=== PATIENT | female | born 1925 | race Caucasian/White ===

== ENCOUNTER 2016-11-11 18:07 | Inpatient (IN) | payer MEDICARE, MEDICAID ==
[2016-11-11 18:55] LABS: % BASOPHILS 0.8 % (0.0-2.0); % EOSINOPHILS 4.1 % (0.0-5.0); % LYMPHOCYTES 26.5 % (20.0-50.0); % MONOCYTES 11.5 % (2.0-10.0); % NEUTROPHILS 57.1 % (40.0-80.0); HEMATOCRIT 39.7 % (35.0-45.0); HEMOGLOBIN 13.2 gm/dL (11.7-16.1); MEAN CELL VOLUME 83.6 fl (81-100); MEAN CORPUSCULAR HEMOGLOBIN 27.9 pg (27.0-31.0); MEAN CORPUSCULAR HGB CONC 33.4 pg (28.0-36.0); MEAN PLATELET VOLUME 9.2 fl; NEUTROPHILE ABSOLUTE 4.5 Th/cmm (1.8-8.0); PLATELET COUNT 191 Th/cmm (150-400); RED BLOOD COUNT 4.75 Mil/cmm (3.80-5.20); RED CELL DISTRIBUTION WIDTH 14.7 % (11.5-20.0); WHITE BLOOD COUNT 7.9 Th/cmm (4.8-10.8)
[2016-11-11 19:21] LABS: ALB/GLOB RATIO 1.1 (1.0-1.8); ALKALINE PHOSPHATASE 75 U/L (34-104); ANION GAP 8.3 (7.0-16.0); BILIRUBIN,TOTAL 0.4 mg/dL (0.3-1.0); BUN - UREA NITROGEN 22 mg/dL (7-25); BUN/CREATININE RATIO 24.4; CALCIUM SERUM 9.4 mg/dL (8.6-10.3); CARBON DIOXIDE 27.2 mEq/L (21.0-31.0); CHLORIDE 105 mEq/L (98-107); CREATININE - SERUM 0.9 mg/dL (0.6-1.2); GLUCOSE 111 mg/dL (70-105); LIPASE 23 U/L (11-82); POTASSIUM SERUM 3.5 mEq/L (3.5-5.1); SGOT 17 U/L (13-39); SGPT/ALT 9 U/L (7-52); SODIUM SERUM 137 mEq/L (136-145)
--- NOTE | 2016-11-11 20:54 | ED Physician Chart ---
Chief Complaint/HPI - Patient Information Date Seen:: 11/11/16 Time Seen:: 18:30 Chief Complaint:: Agitation History of Present Illness:: onset x 2 days of agitation, aggressive behavior, and combative behavior; no SIs , hallucinations, or delusions; no other s/s reported Allergies:: Allergies Allergy/AdvReac Type Severity Reaction Status Date / Time No Known Allergies Allergy Verified 11/11/16 18:28 Vitals:: Vital Signs - 8 hr 11/11/16 18:28 Temp 98.5 F HR 77 RR 16 BP 144/70 O2 Sat % 94 Historian:: Patient, EMS Review:: Nurse's Note Reviewed, Old Chart Reviewed, EMS run form Reviewed, Transfer documents Reviewed Review of Systems - Review of Systems General/Constitutional: Fever, Chills, No weight loss, Weakness, No diaphoresis , No edema, No loss of appetite Skin: No skin lesions, No rash, No bruising Head: Headache, No light-headedness Eyes: No loss of vision, No pain, No diplopia ENT: No earache, No nasal drainage, No sore throat, No tinnitus Neck: No neck pain, No swelling, No thyromegaly, No stiffness, No mass noted Cardio Vascular: No chest pain, No palpitations, No PND, No orthopnea, No edema Pulmonary: No SOB, Cough, No sputum, No wheezing GI: No nausea, No vomiting, No diarrhea, No pain, No melena, No hematochezia, No constipation, No hematemesis G/U: No dysuria, No frequency, No hematuria Kettle Girl: No vaginal discharge, No abnormal vaginal bleed, No contraction Musculoskeletal: No bone or joint pain, No back pain, Muscle pain Endocrine: No polyuria, No polydipsia Psychiatric: Prior psych history, Depression, Anxiety, No suicidal ideation, No homicidal ideation, Auditory hallucination, Visual hallucination Hematopoietic: No bruising, No lymphadenopathy Allergic/Immuno: No urticaria, No angioedema Neurological: No syncope, No focal symptoms, Weakness, No paresthesia, Headache , No seizure, No dizziness, Confusion, No vertigo Past Medical History - Past Medical History Past Medical History: HTN, Dyslipidemia, Dementia, Other (Myositis) Family History: Heart disease, Diabetes Melitus, HTN Social History: Non Smoker, No Alcohol, No Drug Use, Single, Care Facility Surgical History: None Psychiatricy History: Depression, Schizophrenia, Bipolar, Dementia Medication: Reviewed Family Medical History - Family Member mother History Unknown: Yes Physical Exam - Physical Examination General/Constitutional: Awake, Well-developed, well-nourished, Alert, No distress, GCS 15, Non-toxic appearing, Ambulatory Head: Atraumatic Eyes: Lids, conjuctiva normal, PERRL, EOMI Skin: Nl inspection, No rash, No skin lesions, No ecchymosis, Well hydrated, No lymphadenopathy ENMT: External ears, nose nl, Nasal exam nl, Lips, teeth, gums nl Neck: Nontender, Full ROM w/o pain, No JVD, No nuchal rigidity, No bruit, No mass, No stridor Respiratory: Nl effort/Exclusion, Clear to Auscultation, No Wheeze/Rhonchi/Rales Cardio Vascular: RRR, No murmur, gallop, rubs, NL S1 S2 GI: No tenderness/rebounding/guarding, No organomegaly, No hernia, Normal BS's, Nondistended, No mass/bruits, No McBurney tenderness : No CVA tenderness Extremities: No tenderness or effusion, Full ROM, normal strength in all extremities, No edema, Normal digits & nails Neuro/Psych: Alert/oriented, DTR's symmetric, Normal sensory exam, Normal motor strength, No focal deficits Other Neuro/Psych comments:: + Psychomotor Agitation; no SIs; Confused and disoriented Misc: normal gait, Normal back, No paraspinal tenderness Labs/Radiology/EKG Results - Lab Results Results: Laboratory Tests 11/11/16 11/11/16 11/11/16 18:48 18:48 18:48 WBC 7.9 RBC 4.75 Hgb 13.2 Hct 39.7 MCV 83.6 MCH 27.9 MCHC Differential 33.4 RDW 14.7 Plt Count 191 MPV 9.2 Neutrophils % 57.1 Lymphocytes % 26.5 Monocytes % 11.5 H Eosinophils % 4.1 Basophils % 0.8 Sodium 137 Potassium 3.5 Chloride 105 Carbon Dioxide 27.2 Anion Gap 8.3 BUN 22 Creatinine 0.9 Est GFR ( Amer) TNP Est GFR (Non-Af Amer) TNP BUN/Creatinine Ratio 24.4 Glucose 111 H Calcium 9.4 Total Bilirubin 0.4 AST 17 ALT 9 Alkaline Phosphatase 75 Total Protein 6.8 Albumin 3.6 L Globulin 3.2 Albumin/Globulin Ratio 1.1 Lipase 23 TSH 1.83 Salicylates Acetaminophen Ethyl Alcohol < 10 11/11/16 11/11/16 18:48 18:48 WBC RBC Hgb Hct MCV MCH MCHC Differential RDW Plt Count MPV Neutrophils % Lymphocytes % Monocytes % Eosinophils % Basophils % Sodium Potassium Chloride Carbon Dioxide Anion Gap BUN Creatinine Est GFR ( Amer) Est GFR (Non-Af Amer) BUN/Creatinine Ratio Glucose Calcium Total Bilirubin AST ALT Alkaline Phosphatase Total Protein Albumin Globulin Albumin/Globulin Ratio Lipase TSH Salicylates < 25.0 L Acetaminophen < 10.0 L Ethyl Alcohol ED Septic Shock - . Is Septic Shock (SBP<90, OR Lactate>4 mmol\L) present?: No - <6hrs of presentation: Vital Signs: Vital Signs - 8 hr 11/11/16 18:28 Temp 98.5 F HR 77 RR 16 BP 144/70 O2 Sat % 94 Reassessment (Disposition) - Reassessment Reassessment Condition:: Improved - Diagnosis Diagnosis:: Agitation; Manic-Depression; Schizo-Affective Disorder; BiPolar Disorder; Dementia - Aftercare/Follow up Instructions Aftercare/Follow-Up Instructions:: Counseled pt regarding lab results/diagnosis & need follow up, Counseled pt & family regarding lab results/diagnosis & need follow up - Patient Disposition Admitted to:: [facility] Condition at Disposition:: Stable, Improved
[2016-11-11 21:55] VITALS: BP 140/97
[2016-11-11] MEDS ORDERED: Maalox 30 mL Cup PO PRN (21:55)
[2016-11-11] MEDS ORDERED: Magnesium Hydroxide (MOM) 30 mL UDC PO PRN (22:00)
[2016-11-12] MEDS: Pantoprazole 40 mg EC Tab PO SCH (09:55)
--- NOTE | 2016-11-12 13:38 | General Progress Note ---
Subjective - Review of Systems Service Date: 11/12/16 Subjective: Patient confused Objective - Results Result Diagrams: 11/11/16 18:48 11/11/16 18:48 Recent Labs: Laboratory Last Values WBC 7.9 Th/cmm (4.8-10.8) 11/11/16 18:48 RBC 4.75 Mil/cmm (3.80-5.20) 11/11/16 18:48 Hgb 13.2 gm/dL (11.7-16.1) 11/11/16 18:48 Hct 39.7 % (35.0-45.0) 11/11/16 18:48 MCV 83.6 fl (81-100) 11/11/16 18:48 MCH 27.9 pg (27.0-31.0) 11/11/16 18:48 MCHC Differential 33.4 pg (28.0-36.0) 11/11/16 18:48 RDW 14.7 % (11.5-20.0) 11/11/16 18:48 Plt Count 191 Th/cmm (150-400) 11/11/16 18:48 MPV 9.2 fl 11/11/16 18:48 Neutrophils % 57.1 % (40.0-80.0) 11/11/16 18:48 Lymphocytes % 26.5 % (20.0-50.0) 11/11/16 18:48 Monocytes % 11.5 % (2.0-10.0) H 11/11/16 18:48 Eosinophils % 4.1 % (0.0-5.0) 11/11/16 18:48 Basophils % 0.8 % (0.0-2.0) 11/11/16 18:48 Sodium 137 mEq/L (136-145) 11/11/16 18:48 Potassium 3.5 mEq/L (3.5-5.1) 11/11/16 18:48 Chloride 105 mEq/L (98-107) 11/11/16 18:48 Carbon Dioxide 27.2 mEq/L (21.0-31.0) 11/11/16 18:48 Anion Gap 8.3 (7.0-16.0) 11/11/16 18:48 BUN 22 mg/dL (7-25) 11/11/16 18:48 Creatinine 0.9 mg/dL (0.6-1.2) 11/11/16 18:48 Est GFR ( Amer) TNP 11/11/16 18:48 Est GFR (Non-Af Amer) TNP 11/11/16 18:48 BUN/Creatinine Ratio 24.4 11/11/16 18:48 Glucose 111 mg/dL (70-105) H 11/11/16 18:48 Calcium 9.4 mg/dL (8.6-10.3) 11/11/16 18:48 Total Bilirubin 0.4 mg/dL (0.3-1.0) 11/11/16 18:48 GGTP 9 IU/L (0-60) 11/11/16 18:48 AST 17 U/L (13-39) 11/11/16 18:48 ALT 9 U/L (7-52) 11/11/16 18:48 Alkaline Phosphatase 75 U/L (34-104) 11/11/16 18:48 Total Protein 6.8 gm/dL (6.0-8.3) 11/11/16 18:48 Albumin 3.6 gm/dL (3.7-5.3) L 11/11/16 18:48 Globulin 3.2 gm/dL 11/11/16 18:48 Albumin/Globulin Ratio 1.1 (1.0-1.8) 11/11/16 18:48 Lipase 23 U/L (11-82) 11/11/16 18:48 TSH 1.83 uIU/ml (0.34-5.60) 11/11/16 18:48 Salicylates < 25.0 mg/L (30.0-100.0) L 11/11/16 18:48 Acetaminophen < 10.0 ug/mL (10.0-30.0) L 11/11/16 18:48 Ethyl Alcohol < 10 mg/dL (0-10) 11/11/16 18:48 - Physical Exam Vitals and I&O: Vital Signs Temp 97.8 F 11/12/16 06:35 Pulse 87 11/12/16 09:55 Resp 19 11/12/16 08:00 BP 119/96 11/12/16 09:55 Pulse Ox 96 11/12/16 06:35 Intake & Output 0611/12/16 11/12/16 18:59 06:59 18:59 Other: # Voids 3 # Bowel Movements 0 Active Medications: Current Medications Acetaminophen (Tylenol) 650 mg PO Q4H PRN PRN Reason: Mild Pain/Headache/T above 101 Stop: 01/10/17 21:54 Al Hydrox/Mg Hydrox/Simethicone (Maalox) 30 ml PO Q6H PRN PRN Reason: Dyspepsia Stop: 01/10/17 21:54 Alprazolam (Xanax) 0.5 mg PO Q6HR PRN; Protocol PRN Reason: Anxiety Stop: 01/10/17 22:06 Last Admin: 11/12/16 11:41 Dose: 0.5 mg Amlodipine Besylate (Norvasc) 5 mg PO HS СВЕТЛАНА Stop: 01/11/17 20:59 Bisacodyl (Dulcolax 10 Mg Supp) 10 mg RC DAILY PRN PRN Reason: Constipation Stop: 01/10/17 21:59 Ibuprofen (Motrin) 600 mg PO Q6H PRN PRN Reason: Pain (Mild) Stop: 01/10/17 21:59 Lisinopril (Zestril) 5 mg PO DAILY СВЕТЛАНА Stop: 01/11/17 08:59 Last Admin: 11/12/16 09:55 Dose: 5 mg Magnesium Hydroxide (Milk Of Magnesia) 30 ml PO DAILY PRN PRN Reason: Constipation Stop: 01/10/17 21:59 Ondansetron HCl (Zofran Odt) 4 mg PO Q4H PRN PRN Reason: Nausea Stop: 01/10/17 21:59 Pantoprazole Sodium (Protonix) 40 mg PO DAILY [facility] Stop: 01/11/17 08:59 Last Admin: 11/12/16 09:55 Dose: 40 mg Sertraline HCl (Zoloft) 50 mg PO DAILY СВЕТЛАНА PRN Reason: Protocol Stop: 01/11/17 08:59 Last Admin: 11/12/16 09:55 Dose: 50 mg Zolpidem Tartrate (Ambien) 5 mg PO HS PRN PRN Reason: Insomnia Stop: 01/10/17 21:54 General: Alert, Other (Confused) HEENT: Atraumatic Neck: Supple Cardiovascular: Regular rate Lungs: Clear to auscultation Abdomen: Bowel sounds, Soft Extremities: Other (No edema) Neurological: Other (Unstable gait) Skin: Other (Warm and dry) Psych/Mental Status: Other (Confused) Assessment/Plan - Assessment Assessment: Patient is awake, alert, calm, confused. Dx: Dementia, HTN, Dyslipemia - Plan Plan: Will continue to monitor
--- NOTE | 2016-11-12 16:54 | History & Physical ---
ADMIT DATE: 11/11/2016 CHIEF COMPLAINT: Increase in agitation. HISTORY OF PRESENT ILLNESS: This is a case of an 89-year-old white female who is a permanent resident of residential. The patient started to become agitated, aggressive behavior and combative, reason why she was sent to Emergency Room for evaluation and treatment. PAST MEDICAL HISTORY: The patient has past medical history of dementia, hypertension, dyslipidemia. FAMILY HISTORY: Diabetes mellitus and hypertension. SOCIAL HISTORY: The patient is a permanent resident of a residential. PAST SURGICAL HISTORY: Not available. MEDICATIONS: Reviewed. REVIEW OF SYSTEMS: Information was not obtained secondary to the patient's mental condition. PHYSICAL EXAMINATION: GENERAL: Does reveal fairly nourished and developed white female, awake, alert, confused and agitated at moments. HEENT: Head is normocephalic and atraumatic. Eyes: Pupils reactive to light. Nose: No evidence of nasal obstruction. Ears: No evidence of any discharge. Mouth: Fairly ____. LUNGS: Bilateral air entry. No wheezing, no crackles. HEART: Regular rhythm. ABDOMEN: Soft, nontender, bowel sounds present. EXTREMITIES: No edema. The patient is not ambulatory. NEUROLOGICAL: The patient is awake, alert, confused, not oriented. Neurological examination is not completed secondary to the patient's mental condition. IMPRESSION: 1. Increase in agitation. 2. Dementia. 3. Hypertension. 4. Dyslipidemia. PLAN: 1. The patient will be admitted in the Geropsych Unit. 2. The patient will be followed by Psychiatry. 3. Continue with residential medications. 4. Diet: Low in sodium. 5. CBC, CMP at a.m. JOB# [id number]
--- NOTE | 2016-11-13 04:26 | Psychosocial Evaluation ---
DATE OF SERVICE: IDENTIFYING DATA AND HISTORY OF PRESENT ILLNESS: The patient is an 89-year-old woman, [facility]. In justification of hospitalization, the patient is admitted here on a voluntary basis in view of her acute agitation and paranoia. Chart is reviewed. The patient is interviewed. Staff was spoken to. During the evaluation, the patient ____ is not willing to comply with the request and has been screaming and yelling. Review of the chart indicated that the patient has been on Zoloft 50 mg on a daily basis for her depression and the patient also has been receiving the Ativan. The patient is reported to have been getting easily agitated and could not be contained at a lower level of care and hence, the patient has been referred over here for stabilization. PAST PSYCHIATRIC HISTORY: Details are not known. The patient is being followed up by Dr. White on outpatient basis. 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 Medical history, physical examination is requested and done by Dr. Ko. SUBSTANCE ABUSE HISTORY: None. PHYSICAL OR SEXUAL ABUSE HISTORY: None. LEGAL PROBLEMS: None at this time. STRENGTH AND ASSETS: The patient is motivated. MENTAL STATUS EXAMINATION: The patient is an 89-year-old, looking her stated age, thin built, superficially cooperative. Eye contact is poor. Mood is noted to be irritable. Affect is constricted. Insight and judgment at this time are noted to be impaired. Impulse control is noted to be poor. The patient has short and long-term ____ deficits. The patient is not able to provide much of information. With cognitive questionnaire, the patient has been getting easily frustrated. The patient has paranoia. The patient is reported to have been getting agitated and could not be contained at a lower level of care. DIAGNOSTIC IMPRESSION: AXIS I: A. Psychotic ____ unspecified. B. Dementia and behavioral change secondary to it. AXIS II: None. AXIS III: As per Dr. Ko. IMMEDIATE TREATMENT PLAN: The patient is going to be observed on inpatient unit, provided with supportive psychotherapy. The patient is going to be closely monitored. Once stabilized, the patient is going to be discharged to [facility] to be followed up at the [facility] cared by Dr. Newell. JOB# [id number]
[2016-11-13] MEDS: Pantoprazole 40 mg EC Tab PO SCH (08:42)
--- NOTE | 2016-11-13 14:52 | General Progress Note ---
Subjective - Review of Systems Service Date: 11/13/16 Subjective: Patient confused. Objective - Results Result Diagrams: 11/11/16 18:48 11/11/16 18:48 Recent Labs: Laboratory Last Values WBC 7.9 Th/cmm (4.8-10.8) 11/11/16 18:48 RBC 4.75 Mil/cmm (3.80-5.20) 11/11/16 18:48 Hgb 13.2 gm/dL (11.7-16.1) 11/11/16 18:48 Hct 39.7 % (35.0-45.0) 11/11/16 18:48 MCV 83.6 fl (81-100) 11/11/16 18:48 MCH 27.9 pg (27.0-31.0) 11/11/16 18:48 MCHC Differential 33.4 pg (28.0-36.0) 11/11/16 18:48 RDW 14.7 % (11.5-20.0) 11/11/16 18:48 Plt Count 191 Th/cmm (150-400) 11/11/16 18:48 MPV 9.2 fl 11/11/16 18:48 Neutrophils % 57.1 % (40.0-80.0) 11/11/16 18:48 Lymphocytes % 26.5 % (20.0-50.0) 11/11/16 18:48 Monocytes % 11.5 % (2.0-10.0) H 11/11/16 18:48 Eosinophils % 4.1 % (0.0-5.0) 11/11/16 18:48 Basophils % 0.8 % (0.0-2.0) 11/11/16 18:48 Sodium 137 mEq/L (136-145) 11/11/16 18:48 Potassium 3.5 mEq/L (3.5-5.1) 11/11/16 18:48 Chloride 105 mEq/L (98-107) 11/11/16 18:48 Carbon Dioxide 27.2 mEq/L (21.0-31.0) 11/11/16 18:48 Anion Gap 8.3 (7.0-16.0) 11/11/16 18:48 BUN 22 mg/dL (7-25) 11/11/16 18:48 Creatinine 0.9 mg/dL (0.6-1.2) 11/11/16 18:48 Est GFR ( Amer) TNP 11/11/16 18:48 Est GFR (Non-Af Amer) TNP 11/11/16 18:48 BUN/Creatinine Ratio 24.4 11/11/16 18:48 Glucose 111 mg/dL (70-105) H 11/11/16 18:48 Calcium 9.4 mg/dL (8.6-10.3) 11/11/16 18:48 Total Bilirubin 0.4 mg/dL (0.3-1.0) 11/11/16 18:48 GGTP 9 IU/L (0-60) 11/11/16 18:48 AST 17 U/L (13-39) 11/11/16 18:48 ALT 9 U/L (7-52) 11/11/16 18:48 Alkaline Phosphatase 75 U/L (34-104) 11/11/16 18:48 Total Protein 6.8 gm/dL (6.0-8.3) 11/11/16 18:48 Albumin 3.6 gm/dL (3.7-5.3) L 11/11/16 18:48 Globulin 3.2 gm/dL 11/11/16 18:48 Albumin/Globulin Ratio 1.1 (1.0-1.8) 11/11/16 18:48 Lipase 23 U/L (11-82) 11/11/16 18:48 TSH 1.83 uIU/ml (0.34-5.60) 11/11/16 18:48 Salicylates < 25.0 mg/L (30.0-100.0) L 11/11/16 18:48 Acetaminophen < 10.0 ug/mL (10.0-30.0) L 11/11/16 18:48 Ethyl Alcohol < 10 mg/dL (0-10) 11/11/16 18:48 - Physical Exam Vitals and I&O: Vital Signs Temp 97.6 F 11/12/16 14:00 Pulse 84 11/13/16 08:48 Resp 20 11/12/16 14:00 BP 109/59 11/13/16 08:48 Pulse Ox 97 11/12/16 14:00 Intake & Output 11/12/16 11/13/16 11/13/16 18:59 06:59 18:59 Intake Total 1000 Balance 1000 Intake: Oral 1000 Other: # Voids 3 2 # Bowel Movements 1 Active Medications: Current Medications Acetaminophen (Tylenol) 650 mg PO Q4H PRN PRN Reason: Mild Pain/Headache/T above 101 Stop: 01/10/17 21:54 Al Hydrox/Mg Hydrox/Simethicone (Maalox) 30 ml PO Q6H PRN PRN Reason: Dyspepsia Stop: 01/10/17 21:54 Alprazolam (Xanax) 0.5 mg PO Q6HR PRN; Protocol PRN Reason: Anxiety Stop: 01/10/17 22:06 Last Admin: 11/12/16 11:41 Dose: 0.5 mg Amlodipine Besylate (Norvasc) 5 mg PO HS СВЕТЛАНА Stop: 01/11/17 20:59 Last Admin: 11/12/16 20:45 Dose: 5 mg Bisacodyl (Dulcolax 10 Mg Supp) 10 mg RC DAILY PRN PRN Reason: Constipation Stop: 01/10/17 21:59 Ibuprofen (Motrin) 600 mg PO Q6H PRN PRN Reason: Pain (Mild) Stop: 01/10/17 21:59 Lisinopril (Zestril) 5 mg PO DAILY СВЕТЛАНА Stop: 01/11/17 08:59 Last Admin: 11/13/16 08:48 Dose: Not Given Magnesium Hydroxide (Milk Of Magnesia) 30 ml PO DAILY PRN PRN Reason: Constipation Stop: 01/10/17 21:59 Ondansetron HCl (Zofran Odt) 4 mg PO Q4H PRN PRN Reason: Nausea Stop: 01/10/17 21:59 Pantoprazole Sodium (Protonix) 40 mg PO DAILY СВЕТЛАНА Stop: 01/11/17 08:59 Last Admin: 11/13/16 08:42 Dose: 40 mg Sertraline HCl (Zoloft) 50 mg PO DAILY СВЕТЛАНА PRN Reason: Protocol Stop: 01/11/17 08:59 Last Admin: 11/13/16 08:42 Dose: 50 mg Zolpidem Tartrate (Ambien) 5 mg PO HS PRN PRN Reason: Insomnia Stop: 01/10/17 21:54 Last Admin: 11/12/16 21:10 Dose: 5 mg General: Alert, Other (Confused) HEENT: Atraumatic Neck: Supple Cardiovascular: Regular rate Lungs: Clear to auscultation Abdomen: Bowel sounds, Soft Extremities: Other (No edema) Neurological: Other (Non ambulatory) Skin: Other (Warm and dry) Psych/Mental Status: Other (Confused) Assessment/Plan - Assessment Assessment: Patient is awake, alert, calm, confused. Dx: Dementia, HTN, Dyslipemia. - Plan Plan: Will continue to monitor.
--- NOTE | 2016-11-14 05:13 | Progress Notes ---
DATE: 11/13/2016 PSYCHIATRIC PROGRESS NOTE TIME PATIENT SEEN: 6:00 p.m. SUBJECTIVE: Staff was spoken to. The patient is interviewed. Mood is noted to be depressed. Affect is constricted. Coping skills are noted to be very poor. Sleep and appetite are also noted to be very poor. The patient has been having difficult time to cope with the stress. No side effects to the medications are noted. ASSESSMENT: The patient is still depressed and anxious. PLAN: To continue the patient with the supportive therapy, and I encouraged the patient to verbalize the concerns rather than to act out. The patient is not ready to be discharged to a lower level of care in view of her depression as well as the anxiety symptoms. [facility]# [id number]
[2016-11-14] MEDS: Pantoprazole 40 mg EC Tab PO SCH (08:58)
--- NOTE | 2016-11-14 09:14 | General Progress Note ---
Subjective - Review of Systems Service Date: 11/14/16 Subjective: Patient confused. Objective - Results Result Diagrams: 11/11/16 18:48 11/11/16 18:48 Recent Labs: Laboratory Last Values WBC 7.9 Th/cmm (4.8-10.8) 11/11/16 18:48 RBC 4.75 Mil/cmm (3.80-5.20) 11/11/16 18:48 Hgb 13.2 gm/dL (11.7-16.1) 11/11/16 18:48 Hct 39.7 % (35.0-45.0) 11/11/16 18:48 MCV 83.6 fl (81-100) 11/11/16 18:48 MCH 27.9 pg (27.0-31.0) 11/11/16 18:48 MCHC Differential 33.4 pg (28.0-36.0) 11/11/16 18:48 RDW 14.7 % (11.5-20.0) 11/11/16 18:48 Plt Count 191 Th/cmm (150-400) 11/11/16 18:48 MPV 9.2 fl 11/11/16 18:48 Neutrophils % 57.1 % (40.0-80.0) 11/11/16 18:48 Lymphocytes % 26.5 % (20.0-50.0) 11/11/16 18:48 Monocytes % 11.5 % (2.0-10.0) H 11/11/16 18:48 Eosinophils % 4.1 % (0.0-5.0) 11/11/16 18:48 Basophils % 0.8 % (0.0-2.0) 11/11/16 18:48 Sodium 137 mEq/L (136-145) 11/11/16 18:48 Potassium 3.5 mEq/L (3.5-5.1) 11/11/16 18:48 Chloride 105 mEq/L (98-107) 11/11/16 18:48 Carbon Dioxide 27.2 mEq/L (21.0-31.0) 11/11/16 18:48 Anion Gap 8.3 (7.0-16.0) 11/11/16 18:48 BUN 22 mg/dL (7-25) 11/11/16 18:48 Creatinine 0.9 mg/dL (0.6-1.2) 11/11/16 18:48 Est GFR ( Amer) TNP 11/11/16 18:48 Est GFR (Non-Af Amer) TNP 11/11/16 18:48 BUN/Creatinine Ratio 24.4 11/11/16 18:48 Glucose 111 mg/dL (70-105) H 11/11/16 18:48 Calcium 9.4 mg/dL (8.6-10.3) 11/11/16 18:48 Total Bilirubin 0.4 mg/dL (0.3-1.0) 11/11/16 18:48 GGTP 9 IU/L (0-60) 11/11/16 18:48 AST 17 U/L (13-39) 11/11/16 18:48 ALT 9 U/L (7-52) 11/11/16 18:48 Alkaline Phosphatase 75 U/L (34-104) 11/11/16 18:48 Total Protein 6.8 gm/dL (6.0-8.3) 11/11/16 18:48 Albumin 3.6 gm/dL (3.7-5.3) L 11/11/16 18:48 Globulin 3.2 gm/dL 11/11/16 18:48 Albumin/Globulin Ratio 1.1 (1.0-1.8) 11/11/16 18:48 Lipase 23 U/L (11-82) 11/11/16 18:48 TSH 1.83 uIU/ml (0.34-5.60) 11/11/16 18:48 Salicylates < 25.0 mg/L (30.0-100.0) L 11/11/16 18:48 Acetaminophen < 10.0 ug/mL (10.0-30.0) L 11/11/16 18:48 Ethyl Alcohol < 10 mg/dL (0-10) 11/11/16 18:48 - Physical Exam Vitals and I&O: Vital Signs Temp 97.8 F 11/14/16 06:12 Pulse 69 11/14/16 08:59 Resp 18 11/14/16 06:12 BP 135/72 11/14/16 08:59 Pulse Ox 96 11/14/16 06:12 Intake & Output 11/13/16 11/14/16 11/14/16 18:59 06:59 18:59 Intake Total 850 120 Balance 850 120 Intake: Oral 850 120 Other: # Voids 3 3 # Bowel Movements 0 Active Medications: Current Medications Acetaminophen (Tylenol) 650 mg PO Q4H PRN PRN Reason: Mild Pain/Headache/T above 101 Stop: 01/10/17 21:54 Al Hydrox/Mg Hydrox/Simethicone (Maalox) 30 ml PO Q6H PRN PRN Reason: Dyspepsia Stop: 01/10/17 21:54 Alprazolam (Xanax) 0.25 mg PO Q6HR PRN; Protocol PRN Reason: Anxiety Stop: 01/10/17 22:06 Last Admin: 11/14/16 08:59 Dose: 0.25 mg Amlodipine Besylate (Norvasc) 5 mg PO HS СВЕТЛАНА Stop: 01/11/17 20:59 Last Admin: 11/13/16 21:07 Dose: 5 mg Bisacodyl (Dulcolax 10 Mg Supp) 10 mg RC DAILY PRN PRN Reason: Constipation Stop: 01/10/17 21:59 Ibuprofen (Motrin) 600 mg PO Q6H PRN PRN Reason: Pain (Mild) Stop: 01/10/17 21:59 Lisinopril (Zestril) 5 mg PO DAILY СВЕТЛАНА Stop: 01/11/17 08:59 Last Admin: 11/14/16 08:59 Dose: 5 mg Magnesium Hydroxide (Milk Of Magnesia) 30 ml PO DAILY PRN PRN Reason: Constipation Stop: 01/10/17 21:59 Ondansetron HCl (Zofran Odt) 4 mg PO Q4H PRN PRN Reason: Nausea Stop: 01/10/17 21:59 Pantoprazole Sodium (Protonix) 40 mg PO DAILY СВЕТЛАНА Stop: 01/11/17 08:59 Last Admin: 11/14/16 08:58 Dose: 40 mg Sertraline HCl (Zoloft) 50 mg PO DAILY СВЕТЛАНА PRN Reason: Protocol Stop: 01/11/17 08:59 Last Admin: 11/14/16 08:58 Dose: 50 mg Zolpidem Tartrate (Ambien) 5 mg PO HS PRN PRN Reason: Insomnia Stop: 01/10/17 21:54 Last Admin: 11/13/16 21:07 Dose: 5 mg General: Alert, Other (confused) HEENT: Atraumatic Neck: Supple Cardiovascular: Regular rate Lungs: Clear to auscultation Abdomen: Bowel sounds, Soft Extremities: Other (No edema) Neurological: Other (Non ambulatory) Skin: Other (Warm and dry) Psych/Mental Status: Other (Confused) Assessment/Plan - Assessment Assessment: Patient is awake, alert, calm, confused. Dx: Dementia, HTN, Dyslipemia. - Plan Plan: Will continue to monitor.
--- NOTE | 2016-11-15 05:45 | Progress Notes ---
DATE: 11/14/2016 TIME PATIENT SEEN: 11:00 a.m. SUBJECTIVE: Staff was spoken to. The patient is interviewed. Mood is noted to be depressed. Affect is constricted. The patient is isolative and withdrawn. Insight and judgment are noted to be impaired. Impulse control seems to be limited. Coping skills are also noted to be very poor. ASSESSMENT: The patient is still depressed. PLAN: To continue the patient with the Celexa and follow the patient with the supportive therapy. JOB# [id number]
--- NOTE | 2016-11-15 09:10 | General Progress Note ---
Subjective - Review of Systems Service Date: 11/15/16 Subjective: Patient confused. Objective - Results Result Diagrams: 11/11/16 18:48 11/11/16 18:48 Recent Labs: Laboratory Last Values WBC 7.9 Th/cmm (4.8-10.8) 11/11/16 18:48 RBC 4.75 Mil/cmm (3.80-5.20) 11/11/16 18:48 Hgb 13.2 gm/dL (11.7-16.1) 11/11/16 18:48 Hct 39.7 % (35.0-45.0) 11/11/16 18:48 MCV 83.6 fl (81-100) 11/11/16 18:48 MCH 27.9 pg (27.0-31.0) 11/11/16 18:48 MCHC Differential 33.4 pg (28.0-36.0) 11/11/16 18:48 RDW 14.7 % (11.5-20.0) 11/11/16 18:48 Plt Count 191 Th/cmm (150-400) 11/11/16 18:48 MPV 9.2 fl 11/11/16 18:48 Neutrophils % 57.1 % (40.0-80.0) 11/11/16 18:48 Lymphocytes % 26.5 % (20.0-50.0) 11/11/16 18:48 Monocytes % 11.5 % (2.0-10.0) H 11/11/16 18:48 Eosinophils % 4.1 % (0.0-5.0) 11/11/16 18:48 Basophils % 0.8 % (0.0-2.0) 11/11/16 18:48 Sodium 137 mEq/L (136-145) 11/11/16 18:48 Potassium 3.5 mEq/L (3.5-5.1) 11/11/16 18:48 Chloride 105 mEq/L (98-107) 11/11/16 18:48 Carbon Dioxide 27.2 mEq/L (21.0-31.0) 11/11/16 18:48 Anion Gap 8.3 (7.0-16.0) 11/11/16 18:48 BUN 22 mg/dL (7-25) 11/11/16 18:48 Creatinine 0.9 mg/dL (0.6-1.2) 11/11/16 18:48 Est GFR ( Amer) TNP 11/11/16 18:48 Est GFR (Non-Af Amer) TNP 11/11/16 18:48 BUN/Creatinine Ratio 24.4 11/11/16 18:48 Glucose 111 mg/dL (70-105) H 11/11/16 18:48 Calcium 9.4 mg/dL (8.6-10.3) 11/11/16 18:48 Total Bilirubin 0.4 mg/dL (0.3-1.0) 11/11/16 18:48 GGTP 9 IU/L (0-60) 11/11/16 18:48 AST 17 U/L (13-39) 11/11/16 18:48 ALT 9 U/L (7-52) 11/11/16 18:48 Alkaline Phosphatase 75 U/L (34-104) 11/11/16 18:48 Total Protein 6.8 gm/dL (6.0-8.3) 11/11/16 18:48 Albumin 3.6 gm/dL (3.7-5.3) L 11/11/16 18:48 Globulin 3.2 gm/dL 11/11/16 18:48 Albumin/Globulin Ratio 1.1 (1.0-1.8) 11/11/16 18:48 Lipase 23 U/L (11-82) 11/11/16 18:48 TSH 1.83 uIU/ml (0.34-5.60) 11/11/16 18:48 Salicylates < 25.0 mg/L (30.0-100.0) L 11/11/16 18:48 Acetaminophen < 10.0 ug/mL (10.0-30.0) L 11/11/16 18:48 Ethyl Alcohol < 10 mg/dL (0-10) 11/11/16 18:48 RPR NONREACTIVE (NONREACTIVE) 11/11/16 18:48 - Physical Exam Vitals and I&O: Vital Signs Temp 98.2 F 11/14/16 14:00 Pulse 80 11/14/16 21:31 Resp 20 11/14/16 14:00 BP 126/70 11/14/16 21:31 Pulse Ox 97 11/14/16 14:00 Intake & Output 11/14/16 11/15/16 11/15/16 18:59 06:59 18:59 Intake Total 1000 Balance 1000 Intake: Oral 1000 Other: # Voids 3 1 1 # Bowel Movements 1 Active Medications: Current Medications Acetaminophen (Tylenol) 650 mg PO Q4H PRN PRN Reason: Mild Pain/Headache/T above 101 Stop: 01/10/17 21:54 Al Hydrox/Mg Hydrox/Simethicone (Maalox) 30 ml PO Q6H PRN PRN Reason: Dyspepsia Stop: 01/10/17 21:54 Alprazolam (Xanax) 0.25 mg PO Q6HR PRN; Protocol PRN Reason: Anxiety Stop: 01/10/17 22:06 Last Admin: 11/14/16 15:40 Dose: 0.25 mg Amlodipine Besylate (Norvasc) 5 mg PO HS СВЕТЛАНА Stop: 01/11/17 20:59 Last Admin: 11/14/16 21:31 Dose: 5 mg Bisacodyl (Dulcolax 10 Mg Supp) 10 mg RC DAILY PRN PRN Reason: Constipation Stop: 01/10/17 21:59 Ibuprofen (Motrin) 600 mg PO Q6H PRN PRN Reason: Pain (Mild) Stop: 01/10/17 21:59 Lisinopril (Zestril) 5 mg PO DAILY СВЕТЛАНА Stop: 01/11/17 08:59 Last Admin: 11/14/16 08:59 Dose: 5 mg Magnesium Hydroxide (Milk Of Magnesia) 30 ml PO DAILY PRN PRN Reason: Constipation Stop: 01/10/17 21:59 Ondansetron HCl (Zofran Odt) 4 mg PO Q4H PRN PRN Reason: Nausea Stop: 01/10/17 21:59 Pantoprazole Sodium (Protonix) 40 mg PO DAILY СВЕТЛАНА Stop: 01/11/17 08:59 Last Admin: 11/14/16 08:58 Dose: 40 mg Sertraline HCl (Zoloft) 50 mg PO DAILY СВЕТЛАНА PRN Reason: Protocol Stop: 01/11/17 08:59 Last Admin: 11/14/16 08:58 Dose: 50 mg Zolpidem Tartrate (Ambien) 5 mg PO HS PRN PRN Reason: Insomnia Stop: 01/10/17 21:54 Last Admin: 11/14/16 21:32 Dose: 5 mg General: Alert, Other (Confused) HEENT: Atraumatic Neck: Supple Cardiovascular: Regular rate Lungs: Clear to auscultation Abdomen: Bowel sounds, Soft Extremities: Other (No edema) Neurological: Other (Non ambulatory) Skin: Other (Warm and dry) Psych/Mental Status: Other (Confused) Assessment/Plan - Assessment Assessment: Patient is awake, alert, calm, confused. Dx: Dementia, HTN, Dyslipemia. - Plan Plan: Will continue to monitor.
[2016-11-15] MEDS: Pantoprazole 40 mg EC Tab PO SCH (09:38)
--- NOTE | 2016-11-15 21:06 | Admit Criteria Form ---
Admit Criteria Forms - Admit Criteria Diagnosis: PSYCHIATRIC DISORDERS Clinical Indications for Inpatient Care (Place 'X' for any and all applicable criteria): Ongoing inpatient care may be needed for ANY ONE of the following(1)(2)(3)(4)(6) (7)(8): [ ]I. Danger to self or others not manageable at lower level of care. [ ]II. Grave disability (eg, inability to perform self care necessary at lower level of care) [ ]III. Agitation or inappropriate behavior interfering with care for primary condition (eg, attempting to discontinue lines or drains prematurely, unable to cooperate with respiratory care) [X ]IV. Severe disability or disorder indicated by ALL of the following: [X ]a) Severe behavioral health disorder-related symptoms or condition indicated by ANY ONE of the following: [ X]i) Severe problem with cognition, memory, judgment, or impulse control [ ]ii) Severe clinical manifestations (eg, hallucinations, delusions, other acute psychotic symptoms, coco, extreme agitation or anxiety) [X ]b) Patient management at lower level of care is not feasible until acute intervention or modification is initiated. Extended stay beyond goal length of stay for the primary condition may be indicated when ANY ONE of the following is present: (1)(2)(3)(4): [ ]a) Patient is a danger to self or others and not manageable at lower level of care. [ ]b) Behavior crisis management, including physical or chemical restraints, is required and is not available at a lower level of care. [ ]c) Behavioral symptoms (e.g., agitation, somnolence, inappropriate behavior) are present, and are not manageable at a lower level of care. [ ]d) Patient cannot understand follow-up treatment and crisis plan. [ ]e) Provider and supports are not sufficiently available at lower level of care. [ ]f) Patient cannot participate (e.g., verify absence of plan for harm) and is in needed of monitoring. The original [facility] content created by [facility] has been revised. The portions of the content which have been revised are identified through the use of italic text or in bold, and [facility] has neither reviewed nor approved the modified material. All other unmodified content is copyright [facility]. Please see references footnoted in the original [facility] edition 2016 Admit Criteria Met?: Yes
--- NOTE | 2016-11-16 06:41 | Progress Notes ---
DATE: 11/15/2016 PSYCHIATRIC PROGRESS NOTE TIME PATIENT SEEN: 11:45 a.m. SUBJECTIVE: Staff was spoken to. The patient is interviewed. Mood is noted to be depressed. Affect is constricted. The patient still presents with the depression. The patient is currently on Zoloft and has been able to tolerate the medications. No side effects to the medications are noted. The patient has been having difficult time to cope with the stress. ASSESSMENT: The patient is still depressed. PLAN: To continue patient with the supportive therapy. I encouraged the patient to verbalize the concerns rather than to act out. The patient, at this time, is not able to contract for safety. JOB# [id number]
--- NOTE | 2016-11-16 09:13 | General Progress Note ---
Subjective - Review of Systems Service Date: 11/16/16 Subjective: Patient confused. Objective - Results Result Diagrams: 11/11/16 18:48 11/11/16 18:48 Recent Labs: Laboratory Last Values WBC 7.9 Th/cmm (4.8-10.8) 11/11/16 18:48 RBC 4.75 Mil/cmm (3.80-5.20) 11/11/16 18:48 Hgb 13.2 gm/dL (11.7-16.1) 11/11/16 18:48 Hct 39.7 % (35.0-45.0) 11/11/16 18:48 MCV 83.6 fl (81-100) 11/11/16 18:48 MCH 27.9 pg (27.0-31.0) 11/11/16 18:48 MCHC Differential 33.4 pg (28.0-36.0) 11/11/16 18:48 RDW 14.7 % (11.5-20.0) 11/11/16 18:48 Plt Count 191 Th/cmm (150-400) 11/11/16 18:48 MPV 9.2 fl 11/11/16 18:48 Neutrophils % 57.1 % (40.0-80.0) 11/11/16 18:48 Lymphocytes % 26.5 % (20.0-50.0) 11/11/16 18:48 Monocytes % 11.5 % (2.0-10.0) H 11/11/16 18:48 Eosinophils % 4.1 % (0.0-5.0) 11/11/16 18:48 Basophils % 0.8 % (0.0-2.0) 11/11/16 18:48 Sodium 137 mEq/L (136-145) 11/11/16 18:48 Potassium 3.5 mEq/L (3.5-5.1) 11/11/16 18:48 Chloride 105 mEq/L (98-107) 11/11/16 18:48 Carbon Dioxide 27.2 mEq/L (21.0-31.0) 11/11/16 18:48 Anion Gap 8.3 (7.0-16.0) 11/11/16 18:48 BUN 22 mg/dL (7-25) 11/11/16 18:48 Creatinine 0.9 mg/dL (0.6-1.2) 11/11/16 18:48 Est GFR ( Amer) TNP 11/11/16 18:48 Est GFR (Non-Af Amer) TNP 11/11/16 18:48 BUN/Creatinine Ratio 24.4 11/11/16 18:48 Glucose 111 mg/dL (70-105) H 11/11/16 18:48 Calcium 9.4 mg/dL (8.6-10.3) 11/11/16 18:48 Total Bilirubin 0.4 mg/dL (0.3-1.0) 11/11/16 18:48 GGTP 9 IU/L (0-60) 11/11/16 18:48 AST 17 U/L (13-39) 11/11/16 18:48 ALT 9 U/L (7-52) 11/11/16 18:48 Alkaline Phosphatase 75 U/L (34-104) 11/11/16 18:48 Total Protein 6.8 gm/dL (6.0-8.3) 11/11/16 18:48 Albumin 3.6 gm/dL (3.7-5.3) L 11/11/16 18:48 Globulin 3.2 gm/dL 11/11/16 18:48 Albumin/Globulin Ratio 1.1 (1.0-1.8) 11/11/16 18:48 Lipase 23 U/L (11-82) 11/11/16 18:48 TSH 1.83 uIU/ml (0.34-5.60) 11/11/16 18:48 Salicylates < 25.0 mg/L (30.0-100.0) L 11/11/16 18:48 Acetaminophen < 10.0 ug/mL (10.0-30.0) L 11/11/16 18:48 Ethyl Alcohol < 10 mg/dL (0-10) 11/11/16 18:48 RPR NONREACTIVE (NONREACTIVE) 11/11/16 18:48 - Physical Exam Vitals and I&O: Vital Signs Temp 98 F 11/16/16 06:38 Pulse 92 11/16/16 06:38 Resp 20 11/16/16 06:38 BP 151/51 11/16/16 06:38 Pulse Ox 96 11/16/16 06:38 Intake & Output 11/15/16 11/16/16 11/16/16 18:59 06:59 18:59 Intake Total 900 240 Balance 900 240 Intake: Oral 900 240 Other: # Voids 4 1 # Bowel Movements 1 Active Medications: Current Medications Acetaminophen (Tylenol) 650 mg PO Q4H PRN PRN Reason: Mild Pain/Headache/T above 101 Stop: 01/10/17 21:54 Al Hydrox/Mg Hydrox/Simethicone (Maalox) 30 ml PO Q6H PRN PRN Reason: Dyspepsia Stop: 01/10/17 21:54 Alprazolam (Xanax) 0.25 mg PO Q6HR PRN; Protocol PRN Reason: Anxiety Stop: 01/10/17 22:06 Last Admin: 11/14/16 15:40 Dose: 0.25 mg Amlodipine Besylate (Norvasc) 5 mg PO HS СВЕТЛАНА Stop: 01/11/17 20:59 Last Admin: 11/15/16 21:07 Dose: 5 mg Bisacodyl (Dulcolax 10 Mg Supp) 10 mg RC DAILY PRN PRN Reason: Constipation Stop: 01/10/17 21:59 Ibuprofen (Motrin) 600 mg PO Q6H PRN PRN Reason: Pain (Mild) Stop: 01/10/17 21:59 Lisinopril (Zestril) 5 mg PO DAILY СВЕТЛАНА Stop: 01/11/17 08:59 Last Admin: 11/15/16 09:39 Dose: 5 mg Magnesium Hydroxide (Milk Of Magnesia) 30 ml PO DAILY PRN PRN Reason: Constipation Stop: 01/10/17 21:59 Ondansetron HCl (Zofran Odt) 4 mg PO Q4H PRN PRN Reason: Nausea Stop: 01/10/17 21:59 Pantoprazole Sodium (Protonix) 40 mg PO DAILY СВЕТЛАНА Stop: 01/11/17 08:59 Last Admin: 11/15/16 09:38 Dose: 40 mg Sertraline HCl (Zoloft) 50 mg PO DAILY СВЕТЛАНА PRN Reason: Protocol Stop: 01/11/17 08:59 Last Admin: 11/15/16 09:37 Dose: 50 mg Zolpidem Tartrate (Ambien) 5 mg PO HS PRN PRN Reason: Insomnia Stop: 01/10/17 21:54 Last Admin: 11/15/16 21:07 Dose: 5 mg General: Alert, Other (Confused) HEENT: Atraumatic Neck: Supple Cardiovascular: Regular rate Lungs: Clear to auscultation Abdomen: Bowel sounds, Soft Extremities: Other (No edema) Neurological: Other (Unstable gait) Skin: Other (Warm and dry) Psych/Mental Status: Other (Confused) Assessment/Plan - Assessment Assessment: Patient is awake, alert, calm, confused. Dx: Dementia, HTN, Dyslipemia. - Plan Plan: Will continue to monitor. 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 Current Diet Order/ Nutrition Support Regular chopped meat thin liquids Patient / S.O Not Indicated Pertinent Medications maalox, MOM, ondansetron, protonix Pertinent Labs 11/11/16: Na 137, K 3.5, Cl 105, CO2 27.2, BUn 22, Cr 0.9, Ca9 .4, glucose 111 Nutritional Hx/Data Height 1.63 m Height (Calculated Centimeters) 162.6 Current Weight (lbs) 68.039 kg Weight (Calculated Kilograms) 68.0 Weight (Calculated Grams) 03984.9 Recent Weight Change No Weight Status Overweight GI Symptoms GI Symptoms None Food Allergies No Cultural/Ethnic/Yarsani Belief Pt denies Usual diet at home Pt states "normal diet" Skin Integrity/Comment: ara score 17 Estimated Nutritional Goals BEE in Kcals: Using Current wt Calories/Kcals/Kg 25-30kcals/kg Kcals Calculated 1700-2040kcals/day Protein: Using Current wt Protein g/k-1.2g/kg Protein Calculated 68-82g/day Fluid: ml 1700-2040ml/day Nutritional Problem 1. Problem Problem No nutrition diagnosis at this time Intervention/Recommendation Comments Recommend continuing regular chopped meat thin liquid diet. Expected Outcomes/Goals Expected Outcomes/Goals PO intake >75% of meals
[2016-11-16] MEDS: Pantoprazole 40 mg EC Tab PO SCH (10:00)
--- NOTE | 2016-11-16 22:15 | Progress Notes ---
DATE: 11/16/2016 PSYCHIATRIC PROGRESS NOTE TIME PATIENT SEEN: 12:30 p.m. SUBJECTIVE: Staff was spoken to. The patient is interviewed. Mood depressed. The patient is isolative and withdrawn. Sleep is noted to be poor. Appetite is noted to be improving. The patient is currently on Zoloft and is able to tolerate the medications. No side effects to the medications are noted. ASSESSMENT: The patient is still depressed. PLAN: To continue the patient with supportive therapy. Encouraged the patient to verbalize the concerns rather than to act out. JOB# [id number]
[2016-11-17] MEDS: Pantoprazole 40 mg EC Tab PO SCH (09:41)
--- NOTE | 2016-11-17 13:23 | General Progress Note ---
Subjective - Review of Systems Service Date: 11/17/16 Subjective: Patient confused. Objective - Results Result Diagrams: 11/11/16 18:48 11/11/16 18:48 Recent Labs: Laboratory Last Values WBC 7.9 Th/cmm (4.8-10.8) 11/11/16 18:48 RBC 4.75 Mil/cmm (3.80-5.20) 11/11/16 18:48 Hgb 13.2 gm/dL (11.7-16.1) 11/11/16 18:48 Hct 39.7 % (35.0-45.0) 11/11/16 18:48 MCV 83.6 fl (81-100) 11/11/16 18:48 MCH 27.9 pg (27.0-31.0) 11/11/16 18:48 MCHC Differential 33.4 pg (28.0-36.0) 11/11/16 18:48 RDW 14.7 % (11.5-20.0) 11/11/16 18:48 Plt Count 191 Th/cmm (150-400) 11/11/16 18:48 MPV 9.2 fl 11/11/16 18:48 Neutrophils % 57.1 % (40.0-80.0) 11/11/16 18:48 Lymphocytes % 26.5 % (20.0-50.0) 11/11/16 18:48 Monocytes % 11.5 % (2.0-10.0) H 11/11/16 18:48 Eosinophils % 4.1 % (0.0-5.0) 11/11/16 18:48 Basophils % 0.8 % (0.0-2.0) 11/11/16 18:48 Sodium 137 mEq/L (136-145) 11/11/16 18:48 Potassium 3.5 mEq/L (3.5-5.1) 11/11/16 18:48 Chloride 105 mEq/L (98-107) 11/11/16 18:48 Carbon Dioxide 27.2 mEq/L (21.0-31.0) 11/11/16 18:48 Anion Gap 8.3 (7.0-16.0) 11/11/16 18:48 BUN 22 mg/dL (7-25) 11/11/16 18:48 Creatinine 0.9 mg/dL (0.6-1.2) 11/11/16 18:48 Est GFR ( Amer) TNP 11/11/16 18:48 Est GFR (Non-Af Amer) TNP 11/11/16 18:48 BUN/Creatinine Ratio 24.4 11/11/16 18:48 Glucose 111 mg/dL (70-105) H 11/11/16 18:48 Calcium 9.4 mg/dL (8.6-10.3) 11/11/16 18:48 Total Bilirubin 0.4 mg/dL (0.3-1.0) 11/11/16 18:48 GGTP 9 IU/L (0-60) 11/11/16 18:48 AST 17 U/L (13-39) 11/11/16 18:48 ALT 9 U/L (7-52) 11/11/16 18:48 Alkaline Phosphatase 75 U/L (34-104) 11/11/16 18:48 Total Protein 6.8 gm/dL (6.0-8.3) 11/11/16 18:48 Albumin 3.6 gm/dL (3.7-5.3) L 11/11/16 18:48 Globulin 3.2 gm/dL 11/11/16 18:48 Albumin/Globulin Ratio 1.1 (1.0-1.8) 11/11/16 18:48 Lipase 23 U/L (11-82) 11/11/16 18:48 TSH 1.83 uIU/ml (0.34-5.60) 11/11/16 18:48 Salicylates < 25.0 mg/L (30.0-100.0) L 11/11/16 18:48 Acetaminophen < 10.0 ug/mL (10.0-30.0) L 11/11/16 18:48 Ethyl Alcohol < 10 mg/dL (0-10) 11/11/16 18:48 RPR NONREACTIVE (NONREACTIVE) 11/11/16 18:48 - Physical Exam Vitals and I&O: Vital Signs Temp 98 F 11/17/16 06:39 Pulse 80 11/17/16 09:40 Resp 20 11/17/16 06:39 BP 131/88 11/17/16 09:40 Pulse Ox 98 11/17/16 06:39 Intake & Output 11/16/16 11/17/16 11/17/16 18:59 06:59 18:59 Intake Total 800 240 Balance 800 240 Intake: Oral 800 240 Other: # Voids 3 3 # Bowel Movements 1 0 Active Medications: Current Medications Acetaminophen (Tylenol) 650 mg PO Q4H PRN PRN Reason: Mild Pain/Headache/T above 101 Stop: 01/10/17 21:54 Al Hydrox/Mg Hydrox/Simethicone (Maalox) 30 ml PO Q6H PRN PRN Reason: Dyspepsia Stop: 01/10/17 21:54 Alprazolam (Xanax) 0.25 mg PO Q6HR PRN PRN Reason: Anxiety Stop: 01/16/17 12:16 Amlodipine Besylate (Norvasc) 5 mg PO HS СВЕТЛАНА Stop: 01/11/17 20:59 Last Admin: 11/16/16 20:57 Dose: 5 mg Bisacodyl (Dulcolax 10 Mg Supp) 10 mg RC DAILY PRN PRN Reason: Constipation Stop: 01/10/17 21:59 Ibuprofen (Motrin) 600 mg PO Q6H PRN PRN Reason: Pain (Mild) Stop: 01/10/17 21:59 Lisinopril (Zestril) 5 mg PO DAILY СВЕТЛАНА Stop: 01/11/17 08:59 Last Admin: 11/17/16 09:40 Dose: 5 mg Magnesium Hydroxide (Milk Of Magnesia) 30 ml PO DAILY PRN PRN Reason: Constipation Stop: 01/10/17 21:59 Ondansetron HCl (Zofran Odt) 4 mg PO Q4H PRN PRN Reason: Nausea Stop: 01/10/17 21:59 Pantoprazole Sodium (Protonix) 40 mg PO DAILY СВЕТЛАНА Stop: 01/11/17 08:59 Last Admin: 11/17/16 09:41 Dose: 40 mg Sertraline HCl (Zoloft) 50 mg PO DAILY СВЕТЛАНА PRN Reason: Protocol Stop: 01/11/17 08:59 Last Admin: 11/17/16 09:40 Dose: 50 mg Zolpidem Tartrate (Ambien) 5 mg PO HS PRN PRN Reason: Insomnia Stop: 01/10/17 21:54 Last Admin: 11/15/16 21:07 Dose: 5 mg General: Alert, Other (Confused) HEENT: Atraumatic Neck: Supple Cardiovascular: Regular rate Lungs: Clear to auscultation Abdomen: Bowel sounds, Soft Extremities: Other (No edema) Neurological: Other (Unstable gait) Skin: Other (Warm and dry) Psych/Mental Status: Other (Confused) Assessment/Plan - Assessment Assessment: Patient is awake, alert, calm, confused. Dx: Dementia, HTN, Dyslipemia. - Plan Plan: Will continue to monitor. 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 Current Diet Order/ Nutrition Support Regular chopped meat thin liquids Patient / S.O Not Indicated Pertinent Medications maalox, MOM, ondansetron, protonix Pertinent Labs 11/11/16: Na 137, K 3.5, Cl 105, CO2 27.2, BUn 22, Cr 0.9, Ca9 .4, glucose 111 Nutritional Hx/Data Height 1.63 m Height (Calculated Centimeters) 162.6 Current Weight (lbs) 68.039 kg Weight (Calculated Kilograms) 68.0 Weight (Calculated Grams) 31691.9 Recent Weight Change No Weight Status Overweight GI Symptoms GI Symptoms None Food Allergies No Cultural/Ethnic/Adventist Belief Pt denies Usual diet at home Pt states "normal diet" Skin Integrity/Comment: ara score 17 Estimated Nutritional Goals BEE in Kcals: Using Current wt Calories/Kcals/Kg 25-30kcals/kg Kcals Calculated 1700-2040kcals/day Protein: Using Current wt Protein g/k-1.2g/kg Protein Calculated 68-82g/day Fluid: ml 1700-2040ml/day Nutritional Problem 1. Problem Problem No nutrition diagnosis at this time Intervention/Recommendation Comments Recommend continuing regular chopped meat thin liquid diet. Expected Outcomes/Goals Expected Outcomes/Goals PO intake >75% of meals
--- NOTE | 2016-11-17 23:21 | Progress Notes ---
DATE: 11/17/2016 PSYCHIATRIC PROGRESS NOTE TIME PATIENT SEEN: 09:45 a.m. SUBJECTIVE: Staff was spoken to. The patient is interviewed. Mood is noted to be irritable. Affect is constricted. The patient is reporting that she has not had any sleep last night and the patient's coping skills are noted to be very poor. No side effects to the medications are noted. The patient at this time is on Zoloft and has been able to tolerate the medication. ASSESSMENT: The patient is still depressed. PLAN: To continue the patient with supportive therapy and follow up. JOB# [id number]
[2016-11-18] MEDS: Pantoprazole 40 mg EC Tab PO SCH (08:40)
--- NOTE | 2016-11-18 09:36 | General Progress Note ---
Subjective - Review of Systems Service Date: 11/18/16 Subjective: Patient confused. Objective - Results Result Diagrams: 11/11/16 18:48 11/11/16 18:48 Recent Labs: Laboratory Last Values WBC 7.9 Th/cmm (4.8-10.8) 11/11/16 18:48 RBC 4.75 Mil/cmm (3.80-5.20) 11/11/16 18:48 Hgb 13.2 gm/dL (11.7-16.1) 11/11/16 18:48 Hct 39.7 % (35.0-45.0) 11/11/16 18:48 MCV 83.6 fl (81-100) 11/11/16 18:48 MCH 27.9 pg (27.0-31.0) 11/11/16 18:48 MCHC Differential 33.4 pg (28.0-36.0) 11/11/16 18:48 RDW 14.7 % (11.5-20.0) 11/11/16 18:48 Plt Count 191 Th/cmm (150-400) 11/11/16 18:48 MPV 9.2 fl 11/11/16 18:48 Neutrophils % 57.1 % (40.0-80.0) 11/11/16 18:48 Lymphocytes % 26.5 % (20.0-50.0) 11/11/16 18:48 Monocytes % 11.5 % (2.0-10.0) H 11/11/16 18:48 Eosinophils % 4.1 % (0.0-5.0) 11/11/16 18:48 Basophils % 0.8 % (0.0-2.0) 11/11/16 18:48 Sodium 137 mEq/L (136-145) 11/11/16 18:48 Potassium 3.5 mEq/L (3.5-5.1) 11/11/16 18:48 Chloride 105 mEq/L (98-107) 11/11/16 18:48 Carbon Dioxide 27.2 mEq/L (21.0-31.0) 11/11/16 18:48 Anion Gap 8.3 (7.0-16.0) 11/11/16 18:48 BUN 22 mg/dL (7-25) 11/11/16 18:48 Creatinine 0.9 mg/dL (0.6-1.2) 11/11/16 18:48 Est GFR ( Amer) TNP 11/11/16 18:48 Est GFR (Non-Af Amer) TNP 11/11/16 18:48 BUN/Creatinine Ratio 24.4 11/11/16 18:48 Glucose 111 mg/dL (70-105) H 11/11/16 18:48 Calcium 9.4 mg/dL (8.6-10.3) 11/11/16 18:48 Total Bilirubin 0.4 mg/dL (0.3-1.0) 11/11/16 18:48 GGTP 9 IU/L (0-60) 11/11/16 18:48 AST 17 U/L (13-39) 11/11/16 18:48 ALT 9 U/L (7-52) 11/11/16 18:48 Alkaline Phosphatase 75 U/L (34-104) 11/11/16 18:48 Total Protein 6.8 gm/dL (6.0-8.3) 11/11/16 18:48 Albumin 3.6 gm/dL (3.7-5.3) L 11/11/16 18:48 Globulin 3.2 gm/dL 11/11/16 18:48 Albumin/Globulin Ratio 1.1 (1.0-1.8) 11/11/16 18:48 Lipase 23 U/L (11-82) 11/11/16 18:48 TSH 1.83 uIU/ml (0.34-5.60) 11/11/16 18:48 Salicylates < 25.0 mg/L (30.0-100.0) L 11/11/16 18:48 Acetaminophen < 10.0 ug/mL (10.0-30.0) L 11/11/16 18:48 Ethyl Alcohol < 10 mg/dL (0-10) 11/11/16 18:48 RPR NONREACTIVE (NONREACTIVE) 11/11/16 18:48 - Physical Exam Vitals and I&O: Vital Signs Temp 98.6 F 11/18/16 06:32 Pulse 68 11/18/16 08:40 Resp 20 11/18/16 06:32 BP 98/54 11/18/16 08:40 Pulse Ox 98 11/18/16 06:32 Intake & Output 11/17/16 11/18/16 11/18/16 18:59 06:59 18:59 Intake Total 360 120 Balance 360 120 Intake: Oral 360 120 Other: # Voids 2 3 # Bowel Movements 0 0 Active Medications: Current Medications Acetaminophen (Tylenol) 650 mg PO Q4H PRN PRN Reason: Mild Pain/Headache/T above 101 Stop: 01/10/17 21:54 Al Hydrox/Mg Hydrox/Simethicone (Maalox) 30 ml PO Q6H PRN PRN Reason: Dyspepsia Stop: 01/10/17 21:54 Alprazolam (Xanax) 0.25 mg PO Q6HR PRN PRN Reason: Anxiety Stop: 01/16/17 12:16 Last Admin: 11/17/16 20:56 Dose: 0.25 mg Amlodipine Besylate (Norvasc) 5 mg PO HS СВЕТЛАНА Stop: 01/11/17 20:59 Last Admin: 11/17/16 20:56 Dose: 5 mg Bisacodyl (Dulcolax 10 Mg Supp) 10 mg RC DAILY PRN PRN Reason: Constipation Stop: 01/10/17 21:59 Ibuprofen (Motrin) 600 mg PO Q6H PRN PRN Reason: Pain (Mild) Stop: 01/10/17 21:59 Lisinopril (Zestril) 5 mg PO DAILY СВЕТЛАНА Stop: 01/11/17 08:59 Last Admin: 11/18/16 08:40 Dose: Not Given Magnesium Hydroxide (Milk Of Magnesia) 30 ml PO DAILY PRN PRN Reason: Constipation Stop: 01/10/17 21:59 Ondansetron HCl (Zofran Odt) 4 mg PO Q4H PRN PRN Reason: Nausea Stop: 01/10/17 21:59 Pantoprazole Sodium (Protonix) 40 mg PO DAILY СВЕТЛАНА Stop: 01/11/17 08:59 Last Admin: 11/18/16 08:40 Dose: 40 mg Sertraline HCl (Zoloft) 50 mg PO DAILY СВЕТЛАНА PRN Reason: Protocol Stop: 01/11/17 08:59 Last Admin: 11/18/16 08:40 Dose: 50 mg Zolpidem Tartrate (Ambien) 5 mg PO HS PRN PRN Reason: Insomnia Stop: 01/10/17 21:54 Last Admin: 11/15/16 21:07 Dose: 5 mg General: Other (Confused) HEENT: Atraumatic Neck: Supple Cardiovascular: Regular rate Lungs: Other (Bilateral decreased air entry) Abdomen: Bowel sounds Extremities: Other (No edema) Neurological: Other (Non ambulatory) Skin: Other (Warm and dry) Psych/Mental Status: Other (Confused) Assessment/Plan - Assessment Assessment: Patient is lethargic, calm, confused. Per nurse report patient has having SOB. Dx: Dementia, HTN, Dyslipemia. - Plan Plan: CXR, EKG, CBC, CMP, TSH and ABG are requested. Will continue to monitor. 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 Current Diet Order/ Nutrition Support Regular chopped meat thin liquids Patient / S.O Not Indicated Pertinent Medications maalox, MOM, ondansetron, protonix Pertinent Labs 11/11/16: Na 137, K 3.5, Cl 105, CO2 27.2, BUn 22, Cr 0.9, Ca9 .4, glucose 111 Nutritional Hx/Data Height 1.63 m Height (Calculated Centimeters) 162.6 Current Weight (lbs) 68.039 kg Weight (Calculated Kilograms) 68.0 Weight (Calculated Grams) 64889.9 Recent Weight Change No Weight Status Overweight GI Symptoms GI Symptoms None Food Allergies No Cultural/Ethnic/Sikhism Belief Pt denies Usual diet at home Pt states "normal diet" Skin Integrity/Comment: ara score 17 Estimated Nutritional Goals BEE in Kcals: Using Current wt Calories/Kcals/Kg 25-30kcals/kg Kcals Calculated 1700-2040kcals/day Protein: Using Current wt Protein g/k-1.2g/kg Protein Calculated 68-82g/day Fluid: ml 1700-2040ml/day Nutritional Problem 1. Problem Problem No nutrition diagnosis at this time Intervention/Recommendation Comments Recommend continuing regular chopped meat thin liquid diet. Expected Outcomes/Goals Expected Outcomes/Goals PO intake >75% of meals
--- NOTE | 2016-11-18 11:16 | Diagnostic Imaging Report ---
CHEST X-RAY: AP view INDICATION: Shortness of breath COMPARISON: None FINDINGS: Chronic lung changes are seen with left basal subsegmental atelectasis versus scarring. No focal consolidation, pleural effusions, or evidence of a pneumothorax. Heart size is at the upper limits of normal. Atherosclerosis is noted. Degenerative changes of the spine are noted. IMPRESSION: Chronic lung changes and left basal subsegmental atelectasis versus scarring. No focal consolidation identified. Atherosclerotic vascular disease.
[2016-11-18 13:47] LABS: pH 7.48 (7.35-7.45)
[2016-11-18 13:48] LABS: ABG SOURCE Arterial; BE(B) 4.6 mEq/L (-3.0-3.0); HCO3 28.5 mEq/L (20.0-26.0)
[2016-11-18 13:50] LABS: CRITICAL VALUES REPORTED BY CS; FIO2 28
--- NOTE | 2016-11-18 23:44 | Progress Notes ---
DATE: 11/18/2016 PSYCHIATRIC PROGRESS NOTE TIME PATIENT SEEN: 08:00 a.m. SUBJECTIVE: Staff was spoken to. The patient is interviewed. Mood is noted to be depressed. Affect is constricted. The patient's coping skills are noted to be poor. The patient is stating that she is feeling could not figure it out why. The patient has been encouraged to participate in the groups and verbalize the concerns rather than to act out. The patient is not able to care for self. The patient has not been presenting with any suicidal ideation, but coping skills are noted to be extremely poor at this time. ASSESSMENT: The patient is still depressed. PLAN: To continue the patient with the supportive therapy and followup. [facility]# [id number]
[2016-11-19 08:07] LABS: ALB/GLOB RATIO 1.1 (1.0-1.8); ALKALINE PHOSPHATASE 70 U/L (34-104); BILIRUBIN,TOTAL 0.8 mg/dL (0.3-1.0); BUN - UREA NITROGEN 18 mg/dL (7-25); BUN/CREATININE RATIO 22.5; CALCIUM SERUM 8.9 mg/dL (8.6-10.3); CARBON DIOXIDE 28.2 mEq/L (21.0-31.0); CHLORIDE 105 mEq/L (98-107); CREATININE - SERUM 0.8 mg/dL (0.6-1.2); GLUCOSE 90 mg/dL (70-105); POTASSIUM SERUM 3.2 mEq/L (3.5-5.1); SGOT 22 U/L (13-39); SGPT/ALT 14 U/L (7-52); SODIUM SERUM 136 mEq/L (136-145)
[2016-11-19 08:28] LABS: HEMOGLOBIN 12.4 gm/dL (11.7-16.1); MEAN CELL VOLUME 86.6 fl (81-100); MEAN CORPUSCULAR HEMOGLOBIN 28.3 pg (27.0-31.0); MEAN CORPUSCULAR HGB CONC 32.7 pg (28.0-36.0); MEAN PLATELET VOLUME 8.8 fl; RED BLOOD COUNT 4.39 Mil/cmm (3.80-5.20); RED CELL DISTRIBUTION WIDTH 14.7 % (11.5-20.0); WHITE BLOOD COUNT 9.1 Th/cmm (4.8-10.8)
[2016-11-19 08:36] LABS: PLATELET COUNT 247 Th/cmm (150-400)
[2016-11-19] MEDS: Pantoprazole 40 mg EC Tab PO SCH (09:11)
[2016-11-19 09:13] LABS: BAND NEUTROPHILE 4 % (0-10); EOSINOPHIL 3 % (0-5); NEUTROPHILS 50 % (40-80); PLATELET ESTIMATE ADEQUATE (NORMAL); PLATELET MORPHOLOGY NORMAL (NORMAL); TOTAL CELLS COUNTED 100
--- NOTE | 2016-11-19 09:14 | General Progress Note ---
Subjective - Review of Systems Service Date: 11/19/16 Subjective: Patient confused. Objective - Results Result Diagrams: 11/19/16 06:29 11/19/16 06:29 Recent Labs: Laboratory Last Values WBC 9.1 Th/cmm (4.8-10.8) 11/19/16 06:29 RBC 4.39 Mil/cmm (3.80-5.20) 11/19/16 06:29 Hgb 12.4 gm/dL (11.7-16.1) 11/19/16 06:29 Hct 38.0 % (35.0-45.0) 11/19/16 06:29 MCV 86.6 fl (81-100) 11/19/16 06:29 MCH 28.3 pg (27.0-31.0) 11/19/16 06: MCHC Differential 32.7 pg (28.0-36.0) 11/19/16 06:29 RDW 14.7 % (11.5-20.0) 11/19/16 06:29 Plt Count 247 Th/cmm (150-400) D 11/19/16 06:29 MPV 8.8 fl 11/19/16 06:29 Neutrophils % 57.1 % (40.0-80.0) 11/11/16 18:48 Lymphocytes % 26.5 % (20.0-50.0) 11/11/16 18:48 Monocytes % 11.5 % (2.0-10.0) H 11/11/16 18:48 Eosinophils % 4.1 % (0.0-5.0) 11/11/16 18:48 Basophils % 0.8 % (0.0-2.0) 11/11/16 18:48 Specimen Source Arterial 11/18/16 10:55 Sample Site RB 11/18/16 10:55 pH 7.48 (7.35-7.45) H 11/18/16 10:55 pCO2 38.0 mmHg (35.0-45.0) 11/18/16 10:55 pO2 79.0 mmHg (80.0-100.0) L 11/18/16 10:55 HCO3 28.5 mEq/L (20.0-26.0) H 11/18/16 10:55 Base Excess 4.6 mEq/L (-3.0-3.0) H 11/18/16 10:55 O2 Saturation 96.0 % (92.0-100.0) 11/18/16 10:55 Clifford Test NA 11/18/16 10:55 Vent Rate NA 11/18/16 10:55 Inspired O2 28 11/18/16 10:55 Tidal Volume NA 11/18/16 10:55 PEEP NA 11/18/16 10:55 Pressure (ins/psv/peep) NA 11/18/16 10:55 Critical Value CS 11/18/16 10:55 Sodium 136 mEq/L (136-145) 11/19/16 06:29 Potassium 3.2 mEq/L (3.5-5.1) L 11/19/16 06:29 Chloride 105 mEq/L (98-107) 11/19/16 06:29 Carbon Dioxide 28.2 mEq/L (21.0-31.0) 11/19/16 06:29 Anion Gap 6.0 (7.0-16.0) L 11/19/16 06:29 BUN 18 mg/dL (7-25) 11/19/16 06:29 Creatinine 0.8 mg/dL (0.6-1.2) 11/19/16 06:29 Est GFR ( Amer) TNP 11/19/16 06:29 Est GFR (Non-Af Amer) TNP 11/19/16 06:29 BUN/Creatinine Ratio 22.5 11/19/16 06:29 Glucose 90 mg/dL (70-105) 11/19/16 06:29 Calcium 8.9 mg/dL (8.6-10.3) 11/19/16 06:29 Total Bilirubin 0.8 mg/dL (0.3-1.0) 11/19/16 06:29 GGTP 9 IU/L (0-60) 11/11/16 18:48 AST 22 U/L (13-39) 11/19/16 06:29 ALT 14 U/L (7-52) 11/19/16 06:29 Alkaline Phosphatase 70 U/L (34-104) 11/19/16 06:29 Total Protein 6.0 gm/dL (6.0-8.3) 11/19/16 06:29 Albumin 3.2 gm/dL (3.7-5.3) L 11/19/16 06:29 Globulin 2.8 gm/dL 11/19/16 06:29 Albumin/Globulin Ratio 1.1 (1.0-1.8) 11/19/16 06:29 Lipase 23 U/L (11-82) 11/11/16 18:48 TSH 2.09 uIU/ml (0.34-5.60) 11/19/16 06:29 Salicylates < 25.0 mg/L (30.0-100.0) L 11/11/16 18:48 Acetaminophen < 10.0 ug/mL (10.0-30.0) L 11/11/16 18:48 Ethyl Alcohol < 10 mg/dL (0-10) 11/11/16 18:48 RPR NONREACTIVE (NONREACTIVE) 11/11/16 18:48 - Physical Exam Vitals and I&O: Vital Signs Temp 97.5 F 11/19/16 05:27 Pulse 61 11/19/16 05:27 Resp 18 11/19/16 05:27 BP 151/78 11/19/16 05:27 Pulse Ox 93 11/19/16 05:27 Intake & Output 11/18/16 11/19/16 11/19/16 18:59 06:59 18:59 Intake Total 120 Balance 120 Intake: Oral 120 Other: # Voids 2 # Bowel Movements 0 Active Medications: Current Medications Acetaminophen (Tylenol) 650 mg PO Q4H PRN PRN Reason: Mild Pain/Headache/T above 101 Stop: 01/10/17 21:54 Last Admin: 11/18/16 09:59 Dose: 650 mg Al Hydrox/Mg Hydrox/Simethicone (Maalox) 30 ml PO Q6H PRN PRN Reason: Dyspepsia Stop: 01/10/17 21:54 Alprazolam (Xanax) 0.25 mg PO Q6HR PRN PRN Reason: Anxiety Stop: 01/16/17 12:16 Last Admin: 11/18/16 20:50 Dose: 0.25 mg Amlodipine Besylate (Norvasc) 5 mg PO HS СВЕТЛАНА Stop: 01/11/17 20:59 Last Admin: 11/18/16 20:51 Dose: 5 mg Bisacodyl (Dulcolax 10 Mg Supp) 10 mg RC DAILY PRN PRN Reason: Constipation Stop: 01/10/17 21:59 Ibuprofen (Motrin) 600 mg PO Q6H PRN PRN Reason: Pain (Mild) Stop: 01/10/17 21:59 Last Admin: 11/18/16 20:51 Dose: 600 mg Lisinopril (Zestril) 5 mg PO DAILY СВЕТЛАНА Stop: 01/11/17 08:59 Last Admin: 11/18/16 08:40 Dose: Not Given Magnesium Hydroxide (Milk Of Magnesia) 30 ml PO DAILY PRN PRN Reason: Constipation Stop: 01/10/17 21:59 Ondansetron HCl (Zofran Odt) 4 mg PO Q4H PRN PRN Reason: Nausea Stop: 01/10/17 21:59 Pantoprazole Sodium (Protonix) 40 mg PO DAILY СВЕТЛАНА Stop: 01/11/17 08:59 Last Admin: 11/18/16 08:40 Dose: 40 mg Sertraline HCl (Zoloft) 50 mg PO DAILY СВЕТЛАНА PRN Reason: Protocol Stop: 01/11/17 08:59 Last Admin: 11/18/16 08:40 Dose: 50 mg Zolpidem Tartrate (Ambien) 5 mg PO HS PRN PRN Reason: Insomnia Stop: 01/10/17 21:54 Last Admin: 11/15/16 21:07 Dose: 5 mg General: Alert, Moderate distress, Other (Confused) Neck: Supple Cardiovascular: Regular rate Lungs: Clear to auscultation Abdomen: Bowel sounds, Soft Extremities: Other (No edema) Neurological: Other (Non ambulatory) Skin: Other (warm and dry) Psych/Mental Status: Other (Confused) Assessment/Plan - Assessment Assessment: Patient is lethargic, calm, confused. Labs are Ok, CXR shows no acute disease. Dx: Dementia, HTN, Dyslipemia. - Plan Plan: K is replaced. Will continue to monitor. 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 Current Diet Order/ Nutrition Support Regular chopped meat thin liquids Patient / S.O Not Indicated Pertinent Medications maalox, MOM, ondansetron, protonix Pertinent Labs 11/11/16: Na 137, K 3.5, Cl 105, CO2 27.2, BUn 22, Cr 0.9, Ca9 .4, glucose 111 Nutritional Hx/Data Height 1.63 m Height (Calculated Centimeters) 162.6 Current Weight (lbs) 68.039 kg Weight (Calculated Kilograms) 68.0 Weight (Calculated Grams) 10907.9 Recent Weight Change No Weight Status Overweight GI Symptoms GI Symptoms None Food Allergies No Cultural/Ethnic/Mandaen Belief Pt denies Usual diet at home Pt states "normal diet" Skin Integrity/Comment: ara score 17 Estimated Nutritional Goals BEE in Kcals: Using Current wt Calories/Kcals/Kg 25-30kcals/kg Kcals Calculated 1700-2040kcals/day Protein: Using Current wt Protein g/k-1.2g/kg Protein Calculated 68-82g/day Fluid: ml 1700-2040ml/day Nutritional Problem 1. Problem Problem No nutrition diagnosis at this time Intervention/Recommendation Comments Recommend continuing regular chopped meat thin liquid diet. Expected Outcomes/Goals Expected Outcomes/Goals PO intake >75% of meals
[2016-11-19] MEDS ORDERED: Potassium Chloride 20 mEq ER Tab PO ONE (09:15)
--- NOTE | 2016-11-20 08:54 | General Progress Note ---
Subjective - Review of Systems Service Date: 11/20/16 Subjective: Patient is awake and confused. Objective - Results Result Diagrams: 11/19/16 06:29 11/19/16 06:29 Recent Labs: Laboratory Last Values WBC 9.1 Th/cmm (4.8-10.8) 11/19/16 06:29 RBC 4.39 Mil/cmm (3.80-5.20) 11/19/16 06:29 Hgb 12.4 gm/dL (11.7-16.1) 11/19/16 06:29 Hct 38.0 % (35.0-45.0) 11/19/16 06: MCV 86.6 fl (81-100) 11/19/16 06: MCH 28.3 pg (27.0-31.0) 11/19/16 06: MCHC Differential 32.7 pg (28.0-36.0) 11/19/16 06: RDW 14.7 % (11.5-20.0) 11/19/16 06: Plt Count 247 Th/cmm (150-400) D 11/19/16 06:29 MPV 8.8 fl 11/19/16 06: Neutrophils % 57.1 % (40.0-80.0) 11/11/16 18:48 Band Neutrophils % 4 % (0-10) 11/19/16 06: Lymphocytes % 26.5 % (20.0-50.0) 11/11/16 18:48 Monocytes % 11.5 % (2.0-10.0) H 11/11/16 18:48 Eosinophils % 4.1 % (0.0-5.0) 11/11/16 18:48 Basophils % 0.8 % (0.0-2.0) 11/11/16 18:48 Neutrophils (Manual) 50 % (40-80) 11/19/16 06: Lymphocytes 27 % (20-50) 11/19/16 06:29 Monocytes 16 % (2-10) H 11/19/16 06:29 Eosinophils 3 % (0-5) 11/19/16 06:29 Platelet Estimate ADEQUATE (NORMAL) 11/19/16 06:29 Platelet Morphology NORMAL (NORMAL) 11/19/16 06:29 RBC Morph Micro Appear NORMAL (NORMAL) 11/19/16 06:29 Specimen Source Arterial 11/18/16 10:55 Sample Site RB 11/18/16 10:55 pH 7.48 (7.35-7.45) H 11/18/16 10:55 pCO2 38.0 mmHg (35.0-45.0) 11/18/16 10:55 pO2 79.0 mmHg (80.0-100.0) L 11/18/16 10:55 HCO3 28.5 mEq/L (20.0-26.0) H 11/18/16 10:55 Base Excess 4.6 mEq/L (-3.0-3.0) H 11/18/16 10:55 O2 Saturation 96.0 % (92.0-100.0) 11/18/16 10:55 Clifford Test NA 11/18/16 10:55 Vent Rate NA 11/18/16 10:55 Inspired O2 28 11/18/16 10:55 Tidal Volume NA 11/18/16 10:55 PEEP NA 11/18/16 10:55 Pressure (ins/psv/peep) NA 11/18/16 10:55 Critical Value CS 11/18/16 10:55 Sodium 136 mEq/L (136-145) 11/19/16 06:29 Potassium 3.2 mEq/L (3.5-5.1) L 11/19/16 06:29 Chloride 105 mEq/L (98-107) 11/19/16 06:29 Carbon Dioxide 28.2 mEq/L (21.0-31.0) 11/19/16 06:29 Anion Gap 6.0 (7.0-16.0) L 11/19/16 06:29 BUN 18 mg/dL (7-25) 11/19/16 06:29 Creatinine 0.8 mg/dL (0.6-1.2) 11/19/16 06:29 Est GFR ( Amer) TNP 11/19/16 06:29 Est GFR (Non-Af Amer) TNP 11/19/16 06:29 BUN/Creatinine Ratio 22.5 11/19/16 06:29 Glucose 90 mg/dL (70-105) 11/19/16 06:29 Calcium 8.9 mg/dL (8.6-10.3) 11/19/16 06:29 Total Bilirubin 0.8 mg/dL (0.3-1.0) 11/19/16 06:29 GGTP 9 IU/L (0-60) 11/11/16 18:48 AST 22 U/L (13-39) 11/19/16 06:29 ALT 14 U/L (7-52) 11/19/16 06:29 Alkaline Phosphatase 70 U/L (34-104) 11/19/16 06:29 Total Protein 6.0 gm/dL (6.0-8.3) 11/19/16 06:29 Albumin 3.2 gm/dL (3.7-5.3) L 11/19/16 06:29 Globulin 2.8 gm/dL 11/19/16 06:29 Albumin/Globulin Ratio 1.1 (1.0-1.8) 11/19/16 06:29 Lipase 23 U/L (11-82) 11/11/16 18:48 TSH 2.09 uIU/ml (0.34-5.60) 11/19/16 06:29 Salicylates < 25.0 mg/L (30.0-100.0) L 11/11/16 18:48 Acetaminophen < 10.0 ug/mL (10.0-30.0) L 11/11/16 18:48 Ethyl Alcohol < 10 mg/dL (0-10) 11/11/16 18:48 RPR NONREACTIVE (NONREACTIVE) 11/11/16 18:48 - Physical Exam Vitals and I&O: Vital Signs Temp 97.7 F 11/20/16 06:00 Pulse 58 11/20/16 06:00 Resp 18 11/20/16 06:00 BP 119/62 11/20/16 06:00 Pulse Ox 95 11/20/16 06:00 Intake & Output 11/19/16 11/20/16 11/20/16 18:59 06:59 18:59 Intake Total 960 500 Balance 960 500 Intake: Oral 960 500 Other: # Voids 3 3 # Bowel Movements 1 0 Active Medications: Current Medications Acetaminophen (Tylenol) 650 mg PO Q4H PRN PRN Reason: Mild Pain/Headache/T above 101 Stop: 01/10/17 21:54 Last Admin: 11/19/16 18:25 Dose: 650 mg Al Hydrox/Mg Hydrox/Simethicone (Maalox) 30 ml PO Q6H PRN PRN Reason: Dyspepsia Stop: 01/10/17 21:54 Alprazolam (Xanax) 0.25 mg PO Q6HR PRN PRN Reason: Anxiety Stop: 01/16/17 12:16 Last Admin: 11/19/16 09:13 Dose: 0.25 mg Amlodipine Besylate (Norvasc) 5 mg PO HS СВЕТЛАНА Stop: 01/11/17 20:59 Last Admin: 11/19/16 20:38 Dose: Not Given Bisacodyl (Dulcolax 10 Mg Supp) 10 mg RC DAILY PRN PRN Reason: Constipation Stop: 01/10/17 21:59 Ibuprofen (Motrin) 600 mg PO Q6H PRN PRN Reason: Pain (Mild) Stop: 01/10/17 21:59 Last Admin: 11/18/16 20:51 Dose: 600 mg Lisinopril (Zestril) 5 mg PO DAILY [facility] Stop: 01/11/17 08:59 Last Admin: 11/19/16 09:12 Dose: 5 mg Magnesium Hydroxide (Milk Of Magnesia) 30 ml PO DAILY PRN PRN Reason: Constipation Stop: 01/10/17 21:59 Ondansetron HCl (Zofran Odt) 4 mg PO Q4H PRN PRN Reason: Nausea Stop: 01/10/17 21:59 Pantoprazole Sodium (Protonix) 40 mg PO DAILY [facility] Stop: 01/11/17 08:59 Last Admin: 11/19/16 09:11 Dose: 40 mg Sertraline HCl (Zoloft) 50 mg PO DAILY СВЕТЛАНА PRN Reason: Protocol Stop: 01/11/17 08:59 Last Admin: 11/19/16 09:11 Dose: 50 mg Zolpidem Tartrate (Ambien) 5 mg PO HS PRN PRN Reason: Insomnia Stop: 01/10/17 21:54 Last Admin: 11/15/16 21:07 Dose: 5 mg General: Alert, Other (Confused) HEENT: Atraumatic Neck: Supple Cardiovascular: Regular rate Lungs: Clear to auscultation Abdomen: Bowel sounds, Soft Extremities: Other (No edema) Neurological: Other (Non ambulatory) Skin: Other (Warm and dry) Psych/Mental Status: Other (Confused) Assessment/Plan - Assessment Assessment: Patient is awake, alert, calm, confused. Labs are Ok, O2 sat at 95. Dx: Dementia , HTN, Dyslipemia. - Plan Plan: Will continue to monitor. 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 Current Diet Order/ Nutrition Support Regular chopped meat thin liquids Patient / S.O Not Indicated Pertinent Medications maalox, MOM, ondansetron, protonix Pertinent Labs 11/11/16: Na 137, K 3.5, Cl 105, CO2 27.2, BUn 22, Cr 0.9, Ca9 .4, glucose 111 Nutritional Hx/Data Height 1.63 m Height (Calculated Centimeters) 162.6 Current Weight (lbs) 68.039 kg Weight (Calculated Kilograms) 68.0 Weight (Calculated Grams) 67751.9 Recent Weight Change No Weight Status Overweight GI Symptoms GI Symptoms None Food Allergies No Cultural/Ethnic/Restoration Belief Pt denies Usual diet at home Pt states "normal diet" Skin Integrity/Comment: ara score 17 Estimated Nutritional Goals BEE in Kcals: Using Current wt Calories/Kcals/Kg 25-30kcals/kg Kcals Calculated 1700-2040kcals/day Protein: Using Current wt Protein g/k-1.2g/kg Protein Calculated 68-82g/day Fluid: ml 1700-2040ml/day Nutritional Problem 1. Problem Problem No nutrition diagnosis at this time Intervention/Recommendation Comments Recommend continuing regular chopped meat thin liquid diet. Expected Outcomes/Goals Expected Outcomes/Goals PO intake >75% of meals
--- NOTE | 2016-11-20 10:28 | Progress Notes ---
DATE: 11/19/2016 PSYCHIATRIC PROGRESS NOTE TIME PATIENT SEEN: 5:00 p.m. SUBJECTIVE: Staff was spoken to. The patient is interviewed. Mood is noted to be irritable. Affect is constricted. Insight and judgment at this time are noted to be still impaired. Impulse control seems to be poor. Coping skills are also noted to be poor. The patient has been having difficult time to cope with the stress. No side effects to the medications are noted. The patient has been closely monitored for depression. Insight fair. The patient has been encouraged to verbalize the concerns rather than to act out. ASSESSMENT: The patient is still depressed and is not ready to take care of herself. PLAN: To continue the patient with the supportive therapy and followup. The patient is currently on Zoloft and has been able to tolerate the medication. JOB# [id number]
[2016-11-20] MEDS: Pantoprazole 40 mg EC Tab PO SCH (10:45)
--- NOTE | 2016-11-21 05:21 | Progress Notes ---
DATE: 11/20/2016 TIME PATIENT SEEN: 7:15 a.m. SUBJECTIVE: Staff was spoken to. The patient is interviewed. Mood is noted to be depressed. Affect is constricted. The patient is still isolative and withdrawn. The patient is currently on sertraline 50 mg and has been able to tolerate the medication. Sleep is noted to be poor. Appetite seems to be fair. The patient has been having difficult time to participate in the groups. No side effects to the medications are noted. ASSESSMENT: The patient is still depressed. PLAN: To continue the patient with the supportive therapy. I encouraged the patient to verbalize the concerns rather than to act out. JOB# [id number]
[2016-11-21] MEDS: Pantoprazole 40 mg EC Tab PO SCH (12:00)
--- NOTE | 2016-11-21 13:30 | General Progress Note ---
Subjective - Review of Systems Service Date: 11/21/16 Subjective: Patient is awake and confused. Objective - Results Result Diagrams: 11/19/16 06:29 11/19/16 06:29 Recent Labs: Laboratory Last Values WBC 9.1 Th/cmm (4.8-10.8) 11/19/16 06:29 RBC 4.39 Mil/cmm (3.80-5.20) 11/19/16 06:29 Hgb 12.4 gm/dL (11.7-16.1) 11/19/16 06:29 Hct 38.0 % (35.0-45.0) 11/19/16 06: MCV 86.6 fl (81-100) 11/19/16 06: MCH 28.3 pg (27.0-31.0) 11/19/16 06: MCHC Differential 32.7 pg (28.0-36.0) 11/19/16 06: RDW 14.7 % (11.5-20.0) 11/19/16 06: Plt Count 247 Th/cmm (150-400) D 11/19/16 06:29 MPV 8.8 fl 11/19/16 06: Neutrophils % 57.1 % (40.0-80.0) 11/11/16 18:48 Band Neutrophils % 4 % (0-10) 11/19/16 06: Lymphocytes % 26.5 % (20.0-50.0) 11/11/16 18:48 Monocytes % 11.5 % (2.0-10.0) H 11/11/16 18:48 Eosinophils % 4.1 % (0.0-5.0) 11/11/16 18:48 Basophils % 0.8 % (0.0-2.0) 11/11/16 18:48 Neutrophils (Manual) 50 % (40-80) 11/19/16 06: Lymphocytes 27 % (20-50) 11/19/16 06:29 Monocytes 16 % (2-10) H 11/19/16 06:29 Eosinophils 3 % (0-5) 11/19/16 06:29 Platelet Estimate ADEQUATE (NORMAL) 11/19/16 06:29 Platelet Morphology NORMAL (NORMAL) 11/19/16 06:29 RBC Morph Micro Appear NORMAL (NORMAL) 11/19/16 06:29 Specimen Source Arterial 11/18/16 10:55 Sample Site RB 11/18/16 10:55 pH 7.48 (7.35-7.45) H 11/18/16 10:55 pCO2 38.0 mmHg (35.0-45.0) 11/18/16 10:55 pO2 79.0 mmHg (80.0-100.0) L 11/18/16 10:55 HCO3 28.5 mEq/L (20.0-26.0) H 11/18/16 10:55 Base Excess 4.6 mEq/L (-3.0-3.0) H 11/18/16 10:55 O2 Saturation 96.0 % (92.0-100.0) 11/18/16 10:55 Clifford Test NA 11/18/16 10:55 Vent Rate NA 11/18/16 10:55 Inspired O2 28 11/18/16 10:55 Tidal Volume NA 11/18/16 10:55 PEEP NA 11/18/16 10:55 Pressure (ins/psv/peep) NA 11/18/16 10:55 Critical Value CS 11/18/16 10:55 Sodium 136 mEq/L (136-145) 11/19/16 06:29 Potassium 3.2 mEq/L (3.5-5.1) L 11/19/16 06:29 Chloride 105 mEq/L (98-107) 11/19/16 06:29 Carbon Dioxide 28.2 mEq/L (21.0-31.0) 11/19/16 06:29 Anion Gap 6.0 (7.0-16.0) L 11/19/16 06:29 BUN 18 mg/dL (7-25) 11/19/16 06:29 Creatinine 0.8 mg/dL (0.6-1.2) 11/19/16 06:29 Est GFR ( Amer) TNP 11/19/16 06:29 Est GFR (Non-Af Amer) TNP 11/19/16 06:29 BUN/Creatinine Ratio 22.5 11/19/16 06:29 Glucose 90 mg/dL (70-105) 11/19/16 06:29 Calcium 8.9 mg/dL (8.6-10.3) 11/19/16 06:29 Total Bilirubin 0.8 mg/dL (0.3-1.0) 11/19/16 06:29 GGTP 9 IU/L (0-60) 11/11/16 18:48 AST 22 U/L (13-39) 11/19/16 06:29 ALT 14 U/L (7-52) 11/19/16 06:29 Alkaline Phosphatase 70 U/L (34-104) 11/19/16 06:29 Total Protein 6.0 gm/dL (6.0-8.3) 11/19/16 06:29 Albumin 3.2 gm/dL (3.7-5.3) L 11/19/16 06:29 Globulin 2.8 gm/dL 11/19/16 06:29 Albumin/Globulin Ratio 1.1 (1.0-1.8) 11/19/16 06:29 Lipase 23 U/L (11-82) 11/11/16 18:48 TSH 2.09 uIU/ml (0.34-5.60) 11/19/16 06:29 Salicylates < 25.0 mg/L (30.0-100.0) L 11/11/16 18:48 Acetaminophen < 10.0 ug/mL (10.0-30.0) L 11/11/16 18:48 Ethyl Alcohol < 10 mg/dL (0-10) 11/11/16 18:48 RPR NONREACTIVE (NONREACTIVE) 11/11/16 18:48 - Physical Exam Vitals and I&O: Vital Signs Temp 98.3 F 11/21/16 07:19 Pulse 82 11/21/16 07:19 Resp 18 11/21/16 07:19 BP 137/43 11/21/16 07:19 Pulse Ox 97 11/21/16 07:19 Intake & Output 11/20/16 11/21/16 11/21/16 18:59 06:59 18:59 Other: # Voids 100 1 1 Active Medications: Current Medications Acetaminophen (Tylenol) 650 mg PO Q4H PRN PRN Reason: Mild Pain/Headache/T above 101 Stop: 01/10/17 21:54 Last Admin: 11/19/16 18:25 Dose: 650 mg Al Hydrox/Mg Hydrox/Simethicone (Maalox) 30 ml PO Q6H PRN PRN Reason: Dyspepsia Stop: 01/10/17 21:54 Alprazolam (Xanax) 0.25 mg PO Q6HR PRN PRN Reason: Anxiety Stop: 01/16/17 12:16 Last Admin: 11/21/16 06:08 Dose: 0.25 mg Amlodipine Besylate (Norvasc) 5 mg PO HS СВЕТЛАНА Stop: 01/11/17 20:59 Last Admin: 11/20/16 21:44 Dose: Not Given Bisacodyl (Dulcolax 10 Mg Supp) 10 mg RC DAILY PRN PRN Reason: Constipation Stop: 01/10/17 21:59 Ibuprofen (Motrin) 600 mg PO Q6H PRN PRN Reason: Pain (Mild) Stop: 01/10/17 21:59 Last Admin: 11/18/16 20:51 Dose: 600 mg Lisinopril (Zestril) 5 mg PO DAILY СВЕТЛАНА Stop: 01/11/17 08:59 Last Admin: 11/20/16 10:35 Dose: Not Given Magnesium Hydroxide (Milk Of Magnesia) 30 ml PO DAILY PRN PRN Reason: Constipation Stop: 01/10/17 21:59 Ondansetron HCl (Zofran Odt) 4 mg PO Q4H PRN PRN Reason: Nausea Stop: 01/10/17 21:59 Pantoprazole Sodium (Protonix) 40 mg PO DAILY [facility] Stop: 01/11/17 08:59 Last Admin: 11/20/16 10:45 Dose: 40 mg Sertraline HCl (Zoloft) 50 mg PO DAILY СВЕТЛАНА PRN Reason: Protocol Stop: 01/11/17 08:59 Last Admin: 11/20/16 10:45 Dose: 50 mg Zolpidem Tartrate (Ambien) 5 mg PO HS PRN PRN Reason: Insomnia Stop: 01/10/17 21:54 Last Admin: 11/20/16 23:08 Dose: 5 mg General: Alert, Other (Confused) Assessment/Plan - Assessment Assessment: Patient is awake, alert, calm, confused. Labs are Ok, O2 sat at 95. Dx: Dementia , HTN, Dyslipemia. - Plan Plan: Will continue to monitor. 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 Current Diet Order/ Nutrition Support Regular chopped meat thin liquids Patient / S.O Not Indicated Pertinent Medications maalox, MOM, ondansetron, protonix Pertinent Labs 11/11/16: Na 137, K 3.5, Cl 105, CO2 27.2, BUn 22, Cr 0.9, Ca9 .4, glucose 111 Nutritional Hx/Data Height 1.63 m Height (Calculated Centimeters) 162.6 Current Weight (lbs) 68.039 kg Weight (Calculated Kilograms) 68.0 Weight (Calculated Grams) 80849.9 Recent Weight Change No Weight Status Overweight GI Symptoms GI Symptoms None Food Allergies No Cultural/Ethnic/Shinto Belief Pt denies Usual diet at home Pt states "normal diet" Skin Integrity/Comment: ara score 17 Estimated Nutritional Goals BEE in Kcals: Using Current wt Calories/Kcals/Kg 25-30kcals/kg Kcals Calculated 1700-2040kcals/day Protein: Using Current wt Protein g/k-1.2g/kg Protein Calculated 68-82g/day Fluid: ml 1700-2040ml/day Nutritional Problem 1. Problem Problem No nutrition diagnosis at this time Intervention/Recommendation Comments Recommend continuing regular chopped meat thin liquid diet. Expected Outcomes/Goals Expected Outcomes/Goals PO intake >75% of meals
--- NOTE | 2016-11-22 03:14 | Progress Notes ---
DATE: 11/21/2016 PSYCHIATRIC PROGRESS NOTE TIME PATIENT SEEN: 09:15 a.m. SUBJECTIVE: Staff was spoken to. The patient is interviewed. Mood is noted to be dysphoric. Coping skills are noted to be poor. The patient is isolative and withdrawn. Insight and judgment are noted to be still impaired. The patient is still depressed and is refusing to get out of the bed. ASSESSMENT: The patient is depressed. PLAN: To continue the patient with Zoloft and followup. JOB# [id number]
[2016-11-22] MEDS: Pantoprazole 40 mg EC Tab PO SCH (09:14)
--- NOTE | 2016-11-22 12:09 | General Progress Note ---
Subjective - Review of Systems Service Date: 11/22/16 Subjective: Patient is awake and confused. Objective - Results Result Diagrams: 11/19/16 06:29 11/19/16 06:29 Recent Labs: Laboratory Last Values WBC 9.1 Th/cmm (4.8-10.8) 11/19/16 06:29 RBC 4.39 Mil/cmm (3.80-5.20) 11/19/16 06:29 Hgb 12.4 gm/dL (11.7-16.1) 11/19/16 06:29 Hct 38.0 % (35.0-45.0) 11/19/16 06: MCV 86.6 fl (81-100) 11/19/16 06: MCH 28.3 pg (27.0-31.0) 11/19/16 06: MCHC Differential 32.7 pg (28.0-36.0) 11/19/16 06: RDW 14.7 % (11.5-20.0) 11/19/16 06: Plt Count 247 Th/cmm (150-400) D 11/19/16 06:29 MPV 8.8 fl 11/19/16 06: Neutrophils % 57.1 % (40.0-80.0) 11/11/16 18:48 Band Neutrophils % 4 % (0-10) 11/19/16 06: Lymphocytes % 26.5 % (20.0-50.0) 11/11/16 18:48 Monocytes % 11.5 % (2.0-10.0) H 11/11/16 18:48 Eosinophils % 4.1 % (0.0-5.0) 11/11/16 18:48 Basophils % 0.8 % (0.0-2.0) 11/11/16 18:48 Neutrophils (Manual) 50 % (40-80) 11/19/16 06: Lymphocytes 27 % (20-50) 11/19/16 06:29 Monocytes 16 % (2-10) H 11/19/16 06:29 Eosinophils 3 % (0-5) 11/19/16 06:29 Platelet Estimate ADEQUATE (NORMAL) 11/19/16 06:29 Platelet Morphology NORMAL (NORMAL) 11/19/16 06:29 RBC Morph Micro Appear NORMAL (NORMAL) 11/19/16 06:29 Specimen Source Arterial 11/18/16 10:55 Sample Site RB 11/18/16 10:55 pH 7.48 (7.35-7.45) H 11/18/16 10:55 pCO2 38.0 mmHg (35.0-45.0) 11/18/16 10:55 pO2 79.0 mmHg (80.0-100.0) L 11/18/16 10:55 HCO3 28.5 mEq/L (20.0-26.0) H 11/18/16 10:55 Base Excess 4.6 mEq/L (-3.0-3.0) H 11/18/16 10:55 O2 Saturation 96.0 % (92.0-100.0) 11/18/16 10:55 Clifford Test NA 11/18/16 10:55 Vent Rate NA 11/18/16 10:55 Inspired O2 28 11/18/16 10:55 Tidal Volume NA 11/18/16 10:55 PEEP NA 11/18/16 10:55 Pressure (ins/psv/peep) NA 11/18/16 10:55 Critical Value CS 11/18/16 10:55 Sodium 136 mEq/L (136-145) 11/19/16 06:29 Potassium 3.2 mEq/L (3.5-5.1) L 11/19/16 06:29 Chloride 105 mEq/L (98-107) 11/19/16 06:29 Carbon Dioxide 28.2 mEq/L (21.0-31.0) 11/19/16 06:29 Anion Gap 6.0 (7.0-16.0) L 11/19/16 06:29 BUN 18 mg/dL (7-25) 11/19/16 06:29 Creatinine 0.8 mg/dL (0.6-1.2) 11/19/16 06:29 Est GFR ( Amer) TNP 11/19/16 06:29 Est GFR (Non-Af Amer) TNP 11/19/16 06:29 BUN/Creatinine Ratio 22.5 11/19/16 06:29 Glucose 90 mg/dL (70-105) 11/19/16 06:29 Calcium 8.9 mg/dL (8.6-10.3) 11/19/16 06:29 Total Bilirubin 0.8 mg/dL (0.3-1.0) 11/19/16 06:29 GGTP 9 IU/L (0-60) 11/11/16 18:48 AST 22 U/L (13-39) 11/19/16 06:29 ALT 14 U/L (7-52) 11/19/16 06:29 Alkaline Phosphatase 70 U/L (34-104) 11/19/16 06:29 Total Protein 6.0 gm/dL (6.0-8.3) 11/19/16 06:29 Albumin 3.2 gm/dL (3.7-5.3) L 11/19/16 06:29 Globulin 2.8 gm/dL 11/19/16 06:29 Albumin/Globulin Ratio 1.1 (1.0-1.8) 11/19/16 06:29 Lipase 23 U/L (11-82) 11/11/16 18:48 TSH 2.09 uIU/ml (0.34-5.60) 11/19/16 06:29 Salicylates < 25.0 mg/L (30.0-100.0) L 11/11/16 18:48 Acetaminophen < 10.0 ug/mL (10.0-30.0) L 11/11/16 18:48 Ethyl Alcohol < 10 mg/dL (0-10) 11/11/16 18:48 RPR NONREACTIVE (NONREACTIVE) 11/11/16 18:48 - Physical Exam Vitals and I&O: Vital Signs Temp 98.3 F 11/22/16 07:02 Pulse 79 11/22/16 09:13 Resp 18 11/22/16 07:02 BP 121/71 11/22/16 09:13 Pulse Ox 97 11/22/16 07:02 Intake & Output 11/21/16 11/22/16 11/22/16 18:59 06:59 18:59 Intake Total 900 120 Balance 900 120 Intake: Oral 900 120 Other: # Voids 3 1 1 # Bowel Movements 1 Active Medications: Current Medications Acetaminophen (Tylenol) 650 mg PO Q4H PRN PRN Reason: Mild Pain/Headache/T above 101 Stop: 01/10/17 21:54 Last Admin: 11/19/16 18:25 Dose: 650 mg Al Hydrox/Mg Hydrox/Simethicone (Maalox) 30 ml PO Q6H PRN PRN Reason: Dyspepsia Stop: 01/10/17 21:54 Alprazolam (Xanax) 0.25 mg PO Q6HR PRN PRN Reason: Anxiety Stop: 01/16/17 12:16 Last Admin: 11/21/16 06:08 Dose: 0.25 mg Amlodipine Besylate (Norvasc) 5 mg PO HS [facility] Stop: 01/11/17 20:59 Last Admin: 11/21/16 22:09 Dose: Not Given Bisacodyl (Dulcolax 10 Mg Supp) 10 mg RC DAILY PRN PRN Reason: Constipation Stop: 01/10/17 21:59 Ibuprofen (Motrin) 600 mg PO Q6H PRN PRN Reason: Pain (Mild) Stop: 01/10/17 21:59 Last Admin: 11/18/16 20:51 Dose: 600 mg Lisinopril (Zestril) 5 mg PO DAILY [facility] Stop: 01/11/17 08:59 Last Admin: 11/22/16 09:13 Dose: 5 mg Magnesium Hydroxide (Milk Of Magnesia) 30 ml PO DAILY PRN PRN Reason: Constipation Stop: 01/10/17 21:59 Ondansetron HCl (Zofran Odt) 4 mg PO Q4H PRN PRN Reason: Nausea Stop: 01/10/17 21:59 Pantoprazole Sodium (Protonix) 40 mg PO DAILY [facility] Stop: 01/11/17 08:59 Last Admin: 11/22/16 09:14 Dose: 40 mg Sertraline HCl (Zoloft) 50 mg PO DAILY СВЕТЛАНА PRN Reason: Protocol Stop: 01/11/17 08:59 Last Admin: 11/22/16 09:14 Dose: 50 mg Zolpidem Tartrate (Ambien) 5 mg PO HS PRN PRN Reason: Insomnia Stop: 01/10/17 21:54 Last Admin: 11/21/16 22:54 Dose: 5 mg General: Alert, Other (Confused) HEENT: Atraumatic Neck: Supple Cardiovascular: Regular rate Lungs: Normal air movement Abdomen: Bowel sounds, Soft Extremities: Other (No edema) Neurological: Other (Unstable gait) Skin: Other (Warm and dry) Psych/Mental Status: Other (Confused) Assessment/Plan - Assessment Assessment: Patient is awake, alert, calm, confused. Labs are Ok, O2 sat at 95. Dx: Dementia , HTN, Dyslipemia. - Plan Plan: Will continue to monitor. 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 Current Diet Order/ Nutrition Support Regular chopped meat thin liquids Patient / S.O Not Indicated Pertinent Medications maalox, MOM, ondansetron, protonix Pertinent Labs 11/11/16: Na 137, K 3.5, Cl 105, CO2 27.2, BUn 22, Cr 0.9, Ca9 .4, glucose 111 Nutritional Hx/Data Height 1.63 m Height (Calculated Centimeters) 162.6 Current Weight (lbs) 68.039 kg Weight (Calculated Kilograms) 68.0 Weight (Calculated Grams) 76750.9 Recent Weight Change No Weight Status Overweight GI Symptoms GI Symptoms None Food Allergies No Cultural/Ethnic/Zoroastrianism Belief Pt denies Usual diet at home Pt states "normal diet" Skin Integrity/Comment: ara score 17 Estimated Nutritional Goals BEE in Kcals: Using Current wt Calories/Kcals/Kg 25-30kcals/kg Kcals Calculated 1700-2040kcals/day Protein: Using Current wt Protein g/k-1.2g/kg Protein Calculated 68-82g/day Fluid: ml 1700-2040ml/day Nutritional Problem 1. Problem Problem No nutrition diagnosis at this time Intervention/Recommendation Comments Recommend continuing regular chopped meat thin liquid diet. Expected Outcomes/Goals Expected Outcomes/Goals PO intake >75% of meals
[2016-11-22 13:19] LABS: ALB/GLOB RATIO 1.2 (1.0-1.8); ALKALINE PHOSPHATASE 85 U/L (34-104); ANION GAP 5.6 (7.0-16.0); BILIRUBIN,TOTAL 0.5 mg/dL (0.3-1.0); BUN - UREA NITROGEN 22 mg/dL (7-25); BUN/CREATININE RATIO 27.5; CALCIUM SERUM 9.3 mg/dL (8.6-10.3); CARBON DIOXIDE 27.4 mEq/L (21.0-31.0); CHLORIDE 104 mEq/L (98-107); CREATININE - SERUM 0.8 mg/dL (0.6-1.2); GLUCOSE 158 mg/dL (70-105); SGOT 16 U/L (13-39); SGPT/ALT 11 U/L (7-52); SODIUM SERUM 133 mEq/L (136-145)
--- NOTE | 2016-11-22 22:01 | Progress Notes ---
DATE: 11/22/2016 PSYCHIATRIC PROGRESS NOTE TIME PATIENT SEEN: 12 noon. SUBJECTIVE: Staff was spoken to. The patient is interviewed. Mood is noted to be irritable. Affect is constricted. The patient is isolative and withdrawn. Coping skills are noted to be poor. The patient is stating that she is feeling depressed and does not have any energy to get out of the bed. The patient is currently on Zoloft 50 mg and is able to tolerate the medication. ASSESSMENT: The patient is still depressed and is not able to contract for safety. PLAN: To continue the patient with the supportive therapy, encouraged the patient to verbalize the concerns rather than to act out. JOB# [id number]
[2016-11-23] MEDS: Pantoprazole 40 mg EC Tab PO SCH (09:54)
--- NOTE | 2016-11-23 12:58 | General Progress Note ---
Subjective - Review of Systems Service Date: 11/23/16 Subjective: Patient is awake and confused. Objective - Results Result Diagrams: 11/19/16 06:29 11/22/16 12:50 Recent Labs: Laboratory Last Values WBC 9.1 Th/cmm (4.8-10.8) 11/19/16 06:29 RBC 4.39 Mil/cmm (3.80-5.20) 11/19/16 06:29 Hgb 12.4 gm/dL (11.7-16.1) 11/19/16 06:29 Hct 38.0 % (35.0-45.0) 11/19/16 06:29 MCV 86.6 fl (81-100) 11/19/16 06:29 MCH 28.3 pg (27.0-31.0) 11/19/16 06: MCHC Differential 32.7 pg (28.0-36.0) 11/19/16 06: RDW 14.7 % (11.5-20.0) 11/19/16 06:29 Plt Count 247 Th/cmm (150-400) D 11/19/16 06:29 MPV 8.8 fl 11/19/16 06:29 Neutrophils % 57.1 % (40.0-80.0) 11/11/16 18:48 Band Neutrophils % 4 % (0-10) 11/19/16 06:29 Lymphocytes % 26.5 % (20.0-50.0) 11/11/16 18:48 Monocytes % 11.5 % (2.0-10.0) H 11/11/16 18:48 Eosinophils % 4.1 % (0.0-5.0) 11/11/16 18:48 Basophils % 0.8 % (0.0-2.0) 11/11/16 18:48 Neutrophils (Manual) 50 % (40-80) 11/19/16 06: Lymphocytes 27 % (20-50) 11/19/16 06:29 Monocytes 16 % (2-10) H 11/19/16 06:29 Eosinophils 3 % (0-5) 11/19/16 06:29 Platelet Estimate ADEQUATE (NORMAL) 11/19/16 06:29 Platelet Morphology NORMAL (NORMAL) 11/19/16 06:29 RBC Morph Micro Appear NORMAL (NORMAL) 11/19/16 06:29 Specimen Source Arterial 11/18/16 10:55 Sample Site RB 11/18/16 10:55 pH 7.48 (7.35-7.45) H 11/18/16 10:55 pCO2 38.0 mmHg (35.0-45.0) 11/18/16 10:55 pO2 79.0 mmHg (80.0-100.0) L 11/18/16 10:55 HCO3 28.5 mEq/L (20.0-26.0) H 11/18/16 10:55 Base Excess 4.6 mEq/L (-3.0-3.0) H 11/18/16 10:55 O2 Saturation 96.0 % (92.0-100.0) 11/18/16 10:55 Clifford Test NA 11/18/16 10:55 Vent Rate NA 11/18/16 10:55 Inspired O2 28 11/18/16 10:55 Tidal Volume NA 11/18/16 10:55 PEEP NA 11/18/16 10:55 Pressure (ins/psv/peep) NA 11/18/16 10:55 Critical Value CS 11/18/16 10:55 Sodium 133 mEq/L (136-145) L 11/22/16 12:50 Potassium 4.0 mEq/L (3.5-5.1) 11/22/16 12:50 Chloride 104 mEq/L (98-107) 11/22/16 12:50 Carbon Dioxide 27.4 mEq/L (21.0-31.0) 11/22/16 12:50 Anion Gap 5.6 (7.0-16.0) L 11/22/16 12:50 BUN 22 mg/dL (7-25) 11/22/16 12:50 Creatinine 0.8 mg/dL (0.6-1.2) 11/22/16 12:50 Est GFR ( Amer) TNP 11/22/16 12:50 Est GFR (Non-Af Amer) TNP 11/22/16 12:50 BUN/Creatinine Ratio 27.5 11/22/16 12:50 Glucose 158 mg/dL (70-105) H 11/22/16 12:50 Calcium 9.3 mg/dL (8.6-10.3) 11/22/16 12:50 Total Bilirubin 0.5 mg/dL (0.3-1.0) 11/22/16 12:50 GGTP 9 IU/L (0-60) 11/11/16 18:48 AST 16 U/L (13-39) 11/22/16 12:50 ALT 11 U/L (7-52) 11/22/16 12:50 Alkaline Phosphatase 85 U/L (34-104) 11/22/16 12:50 Total Protein 6.2 gm/dL (6.0-8.3) 11/22/16 12:50 Albumin 3.4 gm/dL (3.7-5.3) L 11/22/16 12:50 Globulin 2.8 gm/dL 11/22/16 12:50 Albumin/Globulin Ratio 1.2 (1.0-1.8) 11/22/16 12:50 Lipase 23 U/L (11-82) 11/11/16 18:48 TSH 2.09 uIU/ml (0.34-5.60) 11/19/16 06:29 Salicylates < 25.0 mg/L (30.0-100.0) L 11/11/16 18:48 Acetaminophen < 10.0 ug/mL (10.0-30.0) L 11/11/16 18:48 Ethyl Alcohol < 10 mg/dL (0-10) 11/11/16 18:48 RPR NONREACTIVE (NONREACTIVE) 11/11/16 18:48 - Physical Exam Vitals and I&O: Vital Signs Temp 97.2 F 11/23/16 06:36 Pulse 67 11/23/16 06:36 Resp 18 11/23/16 06:36 BP 124/76 11/23/16 06:36 Pulse Ox 97 11/23/16 06:36 Intake & Output 11/22/16 11/23/16 11/23/16 18:59 06:59 18:59 Intake Total 1800 120 Balance 1800 120 Intake: Oral 1800 120 Other: # Voids 4 3 # Bowel Movements 0 Active Medications: Current Medications Acetaminophen (Tylenol) 650 mg PO Q4H PRN PRN Reason: Mild Pain/Headache/T above 101 Stop: 01/10/17 21:54 Last Admin: 11/19/16 18:25 Dose: 650 mg Al Hydrox/Mg Hydrox/Simethicone (Maalox) 30 ml PO Q6H PRN PRN Reason: Dyspepsia Stop: 01/10/17 21:54 Alprazolam (Xanax) 0.25 mg PO Q6HR PRN PRN Reason: Anxiety Stop: 01/16/17 12:16 Last Admin: 11/21/16 06:08 Dose: 0.25 mg Amlodipine Besylate (Norvasc) 5 mg PO HS СВЕТЛАНА Stop: 01/11/17 20:59 Last Admin: 11/22/16 20:48 Dose: 5 mg Bisacodyl (Dulcolax 10 Mg Supp) 10 mg RC DAILY PRN PRN Reason: Constipation Stop: 01/10/17 21:59 Ibuprofen (Motrin) 600 mg PO Q6H PRN PRN Reason: Pain (Mild) Stop: 01/10/17 21:59 Last Admin: 11/18/16 20:51 Dose: 600 mg Lisinopril (Zestril) 5 mg PO DAILY [facility] Stop: 01/11/17 08:59 Last Admin: 11/23/16 09:53 Dose: Not Given Magnesium Hydroxide (Milk Of Magnesia) 30 ml PO DAILY PRN PRN Reason: Constipation Stop: 01/10/17 21:59 Ondansetron HCl (Zofran Odt) 4 mg PO Q4H PRN PRN Reason: Nausea Stop: 01/10/17 21:59 Pantoprazole Sodium (Protonix) 40 mg PO DAILY [facility] Stop: 01/11/17 08:59 Last Admin: 11/23/16 09:54 Dose: 40 mg Sertraline HCl (Zoloft) 50 mg PO DAILY СВЕТЛАНА PRN Reason: Protocol Stop: 01/11/17 08:59 Last Admin: 11/23/16 09:54 Dose: 50 mg Zolpidem Tartrate (Ambien) 5 mg PO HS PRN PRN Reason: Insomnia Stop: 01/10/17 21:54 Last Admin: 11/21/16 22:54 Dose: 5 mg General: Alert, Other (Confused) HEENT: Atraumatic Neck: Supple Cardiovascular: Regular rate Lungs: Clear to auscultation Abdomen: Bowel sounds Extremities: Other (No edema) Neurological: Other (Non ambulatory) Skin: Other (Warm and dry) Psych/Mental Status: Other (Confused) Assessment/Plan - Assessment Assessment: Patient is awake, alert, calm, confused. Labs are Ok, O2 sat at 95. Dx: Dementia , HTN, Dyslipemia. - Plan Plan: Will continue to monitor. 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 Current Diet Order/ Nutrition Support Regular chopped meat thin liquids Patient / S.O Not Indicated Pertinent Medications maalox, MOM, ondansetron, protonix Pertinent Labs 11/11/16: Na 137, K 3.5, Cl 105, CO2 27.2, BUn 22, Cr 0.9, Ca9 .4, glucose 111 Nutritional Hx/Data Height 1.63 m Height (Calculated Centimeters) 162.6 Current Weight (lbs) 68.039 kg Weight (Calculated Kilograms) 68.0 Weight (Calculated Grams) 53874.9 Recent Weight Change No Weight Status Overweight GI Symptoms GI Symptoms None Food Allergies No Cultural/Ethnic/Islam Belief Pt denies Usual diet at home Pt states "normal diet" Skin Integrity/Comment: ara score 17 Estimated Nutritional Goals BEE in Kcals: Using Current wt Calories/Kcals/Kg 25-30kcals/kg Kcals Calculated 1700-2040kcals/day Protein: Using Current wt Protein g/k-1.2g/kg Protein Calculated 68-82g/day Fluid: ml 1700-2040ml/day Nutritional Problem 1. Problem Problem No nutrition diagnosis at this time Intervention/Recommendation Comments Recommend continuing regular chopped meat thin liquid diet. Expected Outcomes/Goals Expected Outcomes/Goals PO intake >75% of meals
--- NOTE | 2016-11-23 21:44 | Progress Notes ---
DATE: 11/23/2016 PSYCHIATRIC PROGRESS NOTE TIME PATIENT SEEN: 10:30 a.m. SUBJECTIVE: Staff was spoken to. The patient is interviewed. Mood is noted to be irritable. Affect is constricted. The patient's depression seems to be resolving. The patient is not presenting with any major problem with the sleep or appetite. No side effects to the medications are noted. The patient is currently on Zoloft and is able to tolerate the medications. ASSESSMENT: The patient's depression is resolving. PLAN: To continue patient with the current medications and followup. JOB# [id number]
--- NOTE | 2016-11-24 09:03 | General Progress Note ---
Subjective - Review of Systems Service Date: 11/24/16 Subjective: Patient is awake and confused. Objective - Results Result Diagrams: 11/19/16 06:29 11/22/16 12:50 Recent Labs: Laboratory Last Values WBC 9.1 Th/cmm (4.8-10.8) 11/19/16 06:29 RBC 4.39 Mil/cmm (3.80-5.20) 11/19/16 06:29 Hgb 12.4 gm/dL (11.7-16.1) 11/19/16 06:29 Hct 38.0 % (35.0-45.0) 11/19/16 06:29 MCV 86.6 fl (81-100) 11/19/16 06: MCH 28.3 pg (27.0-31.0) 11/19/16 06: MCHC Differential 32.7 pg (28.0-36.0) 11/19/16 06: RDW 14.7 % (11.5-20.0) 11/19/16 06:29 Plt Count 247 Th/cmm (150-400) D 11/19/16 06:29 MPV 8.8 fl 11/19/16 06: Neutrophils % 57.1 % (40.0-80.0) 11/11/16 18:48 Band Neutrophils % 4 % (0-10) 11/19/16 06: Lymphocytes % 26.5 % (20.0-50.0) 11/11/16 18:48 Monocytes % 11.5 % (2.0-10.0) H 11/11/16 18:48 Eosinophils % 4.1 % (0.0-5.0) 11/11/16 18:48 Basophils % 0.8 % (0.0-2.0) 11/11/16 18:48 Neutrophils (Manual) 50 % (40-80) 11/19/16 06: Lymphocytes 27 % (20-50) 11/19/16 06:29 Monocytes 16 % (2-10) H 11/19/16 06:29 Eosinophils 3 % (0-5) 11/19/16 06:29 Platelet Estimate ADEQUATE (NORMAL) 11/19/16 06:29 Platelet Morphology NORMAL (NORMAL) 11/19/16 06:29 RBC Morph Micro Appear NORMAL (NORMAL) 11/19/16 06:29 Specimen Source Arterial 11/18/16 10:55 Sample Site RB 11/18/16 10:55 pH 7.48 (7.35-7.45) H 11/18/16 10:55 pCO2 38.0 mmHg (35.0-45.0) 11/18/16 10:55 pO2 79.0 mmHg (80.0-100.0) L 11/18/16 10:55 HCO3 28.5 mEq/L (20.0-26.0) H 11/18/16 10:55 Base Excess 4.6 mEq/L (-3.0-3.0) H 11/18/16 10:55 O2 Saturation 96.0 % (92.0-100.0) 11/18/16 10:55 Clifford Test NA 11/18/16 10:55 Vent Rate NA 11/18/16 10:55 Inspired O2 28 11/18/16 10:55 Tidal Volume NA 11/18/16 10:55 PEEP NA 11/18/16 10:55 Pressure (ins/psv/peep) NA 11/18/16 10:55 Critical Value CS 11/18/16 10:55 Sodium 133 mEq/L (136-145) L 11/22/16 12:50 Potassium 4.0 mEq/L (3.5-5.1) 11/22/16 12:50 Chloride 104 mEq/L (98-107) 11/22/16 12:50 Carbon Dioxide 27.4 mEq/L (21.0-31.0) 11/22/16 12:50 Anion Gap 5.6 (7.0-16.0) L 11/22/16 12:50 BUN 22 mg/dL (7-25) 11/22/16 12:50 Creatinine 0.8 mg/dL (0.6-1.2) 11/22/16 12:50 Est GFR ( Amer) TNP 11/22/16 12:50 Est GFR (Non-Af Amer) TNP 11/22/16 12:50 BUN/Creatinine Ratio 27.5 11/22/16 12:50 Glucose 158 mg/dL (70-105) H 11/22/16 12:50 Calcium 9.3 mg/dL (8.6-10.3) 11/22/16 12:50 Total Bilirubin 0.5 mg/dL (0.3-1.0) 11/22/16 12:50 GGTP 9 IU/L (0-60) 11/11/16 18:48 AST 16 U/L (13-39) 11/22/16 12:50 ALT 11 U/L (7-52) 11/22/16 12:50 Alkaline Phosphatase 85 U/L (34-104) 11/22/16 12:50 Total Protein 6.2 gm/dL (6.0-8.3) 11/22/16 12:50 Albumin 3.4 gm/dL (3.7-5.3) L 11/22/16 12:50 Globulin 2.8 gm/dL 11/22/16 12:50 Albumin/Globulin Ratio 1.2 (1.0-1.8) 11/22/16 12:50 Lipase 23 U/L (11-82) 11/11/16 18:48 TSH 2.09 uIU/ml (0.34-5.60) 11/19/16 06:29 Salicylates < 25.0 mg/L (30.0-100.0) L 11/11/16 18:48 Acetaminophen < 10.0 ug/mL (10.0-30.0) L 11/11/16 18:48 Ethyl Alcohol < 10 mg/dL (0-10) 11/11/16 18:48 RPR NONREACTIVE (NONREACTIVE) 11/11/16 18:48 - Physical Exam Vitals and I&O: Vital Signs Temp 97.9 F 11/24/16 06:20 Pulse 52 11/24/16 06:20 Resp 18 11/24/16 06:20 BP 121/51 11/24/16 06:20 Pulse Ox 94 11/24/16 06:20 Intake & Output 11/23/16 11/24/16 11/24/16 18:59 06:59 18:59 Intake Total 1600 90 Balance 1600 90 Intake: Oral 1600 90 Other: # Voids 4 1 # Bowel Movements 0 0 Active Medications: Current Medications Acetaminophen (Tylenol) 650 mg PO Q4H PRN PRN Reason: Mild Pain/Headache/T above 101 Stop: 01/10/17 21:54 Last Admin: 11/19/16 18:25 Dose: 650 mg Al Hydrox/Mg Hydrox/Simethicone (Maalox) 30 ml PO Q6H PRN PRN Reason: Dyspepsia Stop: 01/10/17 21:54 Alprazolam (Xanax) 0.25 mg PO Q6HR PRN PRN Reason: Anxiety Stop: 01/16/17 12:16 Last Admin: 11/21/16 06:08 Dose: 0.25 mg Amlodipine Besylate (Norvasc) 5 mg PO HS СВЕТЛАНА Stop: 01/11/17 20:59 Last Admin: 11/23/16 20:46 Dose: Not Given Bisacodyl (Dulcolax 10 Mg Supp) 10 mg RC DAILY PRN PRN Reason: Constipation Stop: 01/10/17 21:59 Ibuprofen (Motrin) 600 mg PO Q6H PRN PRN Reason: Pain (Mild) Stop: 01/10/17 21:59 Last Admin: 11/18/16 20:51 Dose: 600 mg Lisinopril (Zestril) 5 mg PO DAILY [facility] Stop: 01/11/17 08:59 Last Admin: 11/23/16 09:53 Dose: Not Given Magnesium Hydroxide (Milk Of Magnesia) 30 ml PO DAILY PRN PRN Reason: Constipation Stop: 01/10/17 21:59 Ondansetron HCl (Zofran Odt) 4 mg PO Q4H PRN PRN Reason: Nausea Stop: 01/10/17 21:59 Pantoprazole Sodium (Protonix) 40 mg PO DAILY [facility] Stop: 01/11/17 08:59 Last Admin: 11/23/16 09:54 Dose: 40 mg Sertraline HCl (Zoloft) 50 mg PO DAILY СВЕТЛАНА PRN Reason: Protocol Stop: 01/11/17 08:59 Last Admin: 11/23/16 09:54 Dose: 50 mg Zolpidem Tartrate (Ambien) 5 mg PO HS PRN PRN Reason: Insomnia Stop: 01/10/17 21:54 Last Admin: 11/21/16 22:54 Dose: 5 mg General: Alert, Other (Confused) HEENT: Atraumatic Neck: Supple Cardiovascular: Regular rate Lungs: Clear to auscultation Abdomen: Bowel sounds Extremities: Other Neurological: Other (Non ambulatory) Skin: Other (Warm and dry) Psych/Mental Status: Other (Confused) Assessment/Plan - Assessment Assessment: Patient is awake, alert, calm, confused. Today O2 sat at 94-95. Dx: Dementia, HTN, Dyslipemia. - Plan Plan: Will continue to monitor. 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 Current Diet Order/ Nutrition Support Regular chopped meat thin liquids Patient / S.O Not Indicated Pertinent Medications maalox, MOM, ondansetron, protonix Pertinent Labs 11/11/16: Na 137, K 3.5, Cl 105, CO2 27.2, BUn 22, Cr 0.9, Ca9 .4, glucose 111 Nutritional Hx/Data Height 1.63 m Height (Calculated Centimeters) 162.6 Current Weight (lbs) 68.039 kg Weight (Calculated Kilograms) 68.0 Weight (Calculated Grams) 24003.9 Recent Weight Change No Weight Status Overweight GI Symptoms GI Symptoms None Food Allergies No Cultural/Ethnic/Protestant Belief Pt denies Usual diet at home Pt states "normal diet" Skin Integrity/Comment: ara score 17 Estimated Nutritional Goals BEE in Kcals: Using Current wt Calories/Kcals/Kg 25-30kcals/kg Kcals Calculated 1700-2040kcals/day Protein: Using Current wt Protein g/k-1.2g/kg Protein Calculated 68-82g/day Fluid: ml 1700-2040ml/day Nutritional Problem 1. Problem Problem No nutrition diagnosis at this time Intervention/Recommendation Comments Recommend continuing regular chopped meat thin liquid diet. Expected Outcomes/Goals Expected Outcomes/Goals PO intake >75% of meals
[2016-11-24] MEDS: Pantoprazole 40 mg EC Tab PO SCH (09:42)
--- NOTE | 2016-11-25 02:09 | Progress Notes ---
DATE: 11/24/2016 PSYCHIATRIC PROGRESS NOTE TIME PATIENT SEEN: 09:15 a.m. SUBJECTIVE: Staff was spoken to. The patient is interviewed. Mood is noted to be less irritable. Affect is appropriate. The patient has been able to tolerate the medications. No side effects of medications are noted so far. ASSESSMENT: The patient is stabilizing. PLAN: To discharge the patient today for followup on outpatient basis. [facility]# [id number]
== END 2016-11-24 16:10 | DRG 885 ==
LOC: ER 18:07 → GERO 21:00
PROVIDERS: ADMIT Psychiatry & Neurology Psychiatry; ATTEND Psychiatry & Neurology Psychiatry
DX: F29 Unspecified psychosis not due to a substance or known physiological condition (principal); G30.9 Alzheimer's disease, unspecified; F02.81 Dementia in other diseases classified elsewhere, unspecified severity, with behavioral disturbance; I10 Essential (primary) hypertension; E78.5 Hyperlipidemia, unspecified; F31.9 Bipolar disorder, unspecified; F25.9 Schizoaffective disorder, unspecified; Z83.3 Family history of diabetes mellitus; Z82.49 Family history of ischemic heart disease and other diseases of the circulatory system
CPT/HCPCS: 36415-UA; 36600-90; 71010-TC; 80053-TC; 80320-TC; 80329-TC; 82803-TC; 82977-90; 83690-TC; 84443-TC; 85007-TC; 85025-TC; 85027-TC; 86592-TC; 90899; 93005; Z7610